=== PATIENT | male | born 1960 | race Two or more races ===

== ENCOUNTER 2021-01-13 17:17 | Emergency (ER) | payer MEDICARE, OTHER ==
--- NOTE | 2021-01-13 17:49 | EDM.PDOC ---
ED HPI GENERAL MEDICAL PROBLEM - General Chief Complaint: Chest Pain Stated Complaint: CHEST PAIN Time Seen by Provider: 01/13/21 17:48 Source of Information: Reports: Patient, RN, RN Notes Reviewed History Limitations: Reports: No Limitations - History of Present Illness INITIAL COMMENTS - FREE TEXT/NARRATIVE: Patient is a 60-year-old male who presents to ER with complaint of onset before noon of chest tightness and feeling of a "ball in his throat". Patient states he thought he had indigestion, took his Protonix, took Maalox, took Tums, as well as Pepto-Bismol. Patient states no relief of pain. Patient states he had Covid in July, and again 87 days later. He states he still has residual effects from Covid. Patient states he does have some anxiety as well. Denies any nausea or vomiting, denies shortness of breath, denies diarrhea, denies radiation of pain. Patient states in the past week he has some had some sharp right lower quadrant pain that wraps around to the back, states this is not present today. Onset: Today, Sudden Chest Pain Score (Numeric/FACES): 6 - Related Data Allergies Allergy/AdvReac Type Severity Reaction Status Date / Time methylprednisolone Allergy Other Verified 10/02/20 10:49 Home Meds: Home Meds Acetaminophen 650 mg PO Q6HR PRN 12/15/14 [History] Pantoprazole [ProTONIX] 40 mg PO DAILY 12/15/14 [History] Sildenafil [Viagra] 100 mg PO ASDIRECTED PRN 12/15/14 [History] oxyCODONE 10 mg PO Q6HR PRN 12/15/14 [History] Ibuprofen 600 mg PO ASDIRECTED PRN 04/12/16 [History] LORazepam [Lorazepam] 1 mg PO BID 10/02/20 [History] Multivitamin with Minerals [Multiple Vitamin] 1 each PO DAILY 10/02/20 [History] Lisinopril/Hydrochlorothiazide [Lisinopril-HCTZ 10-12.5 MG] 1 tab PO DAILY 01/13/21 [History] glipiZIDE [Glucotrol XL] 10 mg PO DAILY 01/13/21 [History] tiZANidine HCl [Tizanidine HCl] 2 mg PO ASDIRECTED 01/13/21 [History] Past Medical History HEENT History: Reports: Impaired Vision Other HEENT History: WEARS GLASSES Cardiovascular History: Reports: CAD, Hypertension Respiratory History: Reports: Sleep Apnea Gastrointestinal History: Reports: GERD, Hemorrhoids Genitourinary History: Reports: BPH Musculoskeletal History: Reports: Back Pain, Chronic, Neck Pain, Chronic, Other (See Below) Other Musculoskeletal History: DDD CERVICAL. DDD LUMBAR. 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 Neurological History: Reports: Headaches, Chronic Psychiatric History: Reports: Anxiety, Depression, Other (See Below) Other Psychiatric History: CLAUSTROPHOBIA Endocrine/Metabolic History: Reports: Diabetes, Type II Hematologic History: Reports: Anemia, Other (See Below) Other Hematologic History: ELEVATED LIVER ENZYMES Immunologic History: Reports: None Oncologic (Cancer) History: Reports: None Dermatologic History: Reports: None - Infectious Disease History Infectious Disease History: Reports: Chicken Pox, Other (See Below) Other Infectious Disease History: cOVID 19 10/2020 - Past Surgical History Head Surgeries/Procedures: Reports: None HEENT Surgical History: Reports: Tonsillectomy Cardiovascular Surgical History: Reports: None Respiratory Surgical History: Reports: None GI Surgical History: Reports: Colonoscopy, EGD Male Surgical History: Reports: Other (See Below) Other Male Surgeries/Procedures: enlarge prostate Endocrine Surgical History: Reports: None Neurological Surgical History: Reports: None Musculoskeletal Surgical History: Reports: Arthroscopic Knee Other Musculoskeletal Surgeries/Procedures:: BILATERAL MENISCUS REPAIR Oncologic Surgical History: Reports: None Social & Family History - Family History Family Medical History: No Pertinent Family History - Tobacco Use Tobacco Use Status *Q: Never Tobacco User - Caffeine Use Caffeine Use: Reports: Coffee Other Caffeine Use: 1 CUP COFFEE DAILY. 1 SODA DAILY Caffeine Use Comment: 1-2 cups daily - Recreational Drug Use Recreational Drug Use: No ED ROS GENERAL - Review of Systems Review Of Systems: Comprehensive ROS is negative, except as noted in HPI. ED EXAM, GENERAL - Physical Exam Exam: See Below Exam Limited By: No Limitations General Appearance: Alert, WD/WN, Mild Distress Eye Exam: Bilateral Eye: EOMI, Normal Inspection Ears: Normal External Exam, Hearing Grossly Normal Nose: Normal Inspection Throat/Mouth: Normal Inspection, Normal Voice, No Airway Compromise Head: Atraumatic, Normocephalic Neck: Normal Inspection, Supple, Non-Tender, Full Range of Motion Respiratory/Chest: No Respiratory Distress, Lungs Clear, Normal Breath Sounds, No Accessory Muscle Use, Chest Non-Tender, Decreased Breath Sounds Cardiovascular: Normal Peripheral Pulses, Regular Rate, Rhythm, No Edema, No Gallop, No JVD, No Murmur, No Rub Peripheral Pulses: 2+: Radial (L), Radial (R) GI/Abdominal: Normal Bowel Sounds, Soft, Non-Tender (Male) Exam: Deferred Rectal (Males) Exam: Deferred Back Exam: Normal Inspection, Full Range of Motion, NT Extremities: Normal Inspection, Normal Range of Motion, Non-Tender, Normal Capillary Refill, No Pedal Edema Neurological: Alert, Oriented, CN II-XII Intact, Normal Cognition, Normal Gait, Normal Reflexes, No Motor/Sensory Deficits Psychiatric: Normal Affect, Normal Mood, Anxious Skin Exam: Warm, Dry, Intact, Normal Color, No Rash Lymphatic: No Adenopathy Course - Vital Signs Last Recorded V/S: Last Vital Signs Temp 97.9 F 01/13/21 17:34 Pulse 72 01/13/21 17:34 Resp 14 01/13/21 17:34 BP 170/92 H 01/13/21 17:34 Pulse Ox - Orders/Labs/Meds Orders: Active Orders 24 hr Category Date Time Status EKG Documentation Completion [RC] STAT Care 01/13/21 18:05 Active Chest 1V Frontal [CR] Stat Exams 01/13/21 19:04 Ordered CORONAVIRUS COVID-19 RAPID [MOLEC] Stat Lab 01/13/21 18:57 Received CULTURE BLOOD [BC] Stat Lab 01/13/21 18:33 Results Nitroglycerin/D5W [Nitroglycerin 25 MG/D5W 250 ML] Med 01/13/21 19:15 Stop Req 25 mg in 250 ml IV TITRATE Blood Culture x2 Reflex Set [OM.PC] Stat Oth 01/13/21 18:06 Ordered Medication Orders Nitroglycerin/Dextrose (Nitroglycerin 25 Mg/D5w 250 Ml) 25 mg in 250 mls @ 6 mls/hr IV TITRATE ALMA; Protocol Labs: Laboratory Tests 01/13/21 01/13/21 01/13/21 Range/Units 17:34 17:34 17:34 WBC 8.6 (5.0-10.0) 10^3/uL RBC 5.14 (4.6-6.2) 10^6/uL Hgb 13.9 L D (14.0-18.0) g/dL Hct 42.0 (40.0-54.0) % MCV 81.7 D (80-100) fL MCH 27.0 (27.0-34.0) pg MCHC 33.1 (33.0-35.0) g/dL Plt Count 234 (150-450) 10^3/uL Neut % (Auto) 66.2 (42.2-75.2) % Lymph % (Auto) 20.2 L (20.5-50.1) % Butler % (Auto) 11.5 H (2-8) % Eos % (Auto) 1.9 (1.0-3.0) % Baso % (Auto) 0.2 (0.0-1.0) % PT 10.3 (9.0-12.0) SEC INR 1.0 (0.9-1.2) D-Dimer, Quantitative < 100 (0-400) ng/mL Sodium 138 (136-145) mmol/L Potassium 4.0 (3.5-5.1) mmol/L Chloride 101 (98-107) mmol/L Carbon Dioxide 31 (21-32) mmol/L Anion Gap 10.0 (7-13) mEq/L BUN 11 (7-18) mg/dL Creatinine 1.19 (0.70-1.30) mg/dL Est Cr Clr Drug Dosing TNP Estimated GFR (MDRD) > 60 BUN/Creatinine Ratio 9.2 (No establ ref range) Glucose 133 H (74-99) mg/dL Lactic Acid (0.4-2.0) mmol/L Calcium 8.5 (8.5-10.1) mg/dL Total Bilirubin 0.5 (0.2-1.0) mg/dL AST 34 (15-37) U/L ALT 58 (16-63) U/L Alkaline Phosphatase 88 (46-116) U/L Troponin I 0.181 H* (0.000-0.056) ng/mL C-Reactive Protein < 0.2 (0.0-0.9) mg/dL B-Natriuretic Peptide 8 (0-100) pg/ml Total Protein 7.2 (6.4-8.2) g/dL Albumin 3.5 (3.4-5.0) g/dL Globulin 3.7 Albumin/Globulin Ratio 0.9 TSH, Ultra Sensitive 2.53 (0.36-3.74) uIU/mL Urine Color (YELLOW) Urine Appearance (CLEAR) Urine pH (5.0-9.0) Ur Specific Ferguson (1.005-1.030) Urine Protein (NEGATIVE) Urine Glucose (UA) (NEGATIVE) Urine Ketones (NEGATIVE) Urine Occult Blood (NEGATIVE) Urine Nitrite (NEGATIVE) Urine Bilirubin (NEGATIVE) Urine Urobilinogen (0.2-1.0) mg/dL Ur Leukocyte Esterase (NEGATIVE) 01/13/21 01/13/21 Range/Units 18:33 18:37 WBC (5.0-10.0) 10^3/uL RBC (4.6-6.2) 10^6/uL Hgb (14.0-18.0) g/dL Hct (40.0-54.0) % MCV (80-100) fL MCH (27.0-34.0) pg MCHC (33.0-35.0) g/dL Plt Count (150-450) 10^3/uL Neut % (Auto) (42.2-75.2) % Lymph % (Auto) (20.5-50.1) % Butler % (Auto) (2-8) % Eos % (Auto) (1.0-3.0) % Baso % (Auto) (0.0-1.0) % PT (9.0-12.0) SEC INR (0.9-1.2) D-Dimer, Quantitative (0-400) ng/mL Sodium (136-145) mmol/L Potassium (3.5-5.1) mmol/L Chloride (98-107) mmol/L Carbon Dioxide (21-32) mmol/L Anion Gap (7-13) mEq/L BUN (7-18) mg/dL Creatinine (0.70-1.30) mg/dL Est Cr Clr Drug Dosing Estimated GFR (MDRD) BUN/Creatinine Ratio (No establ ref range) Glucose (74-99) mg/dL Lactic Acid 1.4 (0.4-2.0) mmol/L Calcium (8.5-10.1) mg/dL Total Bilirubin (0.2-1.0) mg/dL AST (15-37) U/L ALT (16-63) U/L Alkaline Phosphatase (46-116) U/L Troponin I (0.000-0.056) ng/mL C-Reactive Protein (0.0-0.9) mg/dL B-Natriuretic Peptide (0-100) pg/ml Total Protein (6.4-8.2) g/dL Albumin (3.4-5.0) g/dL Globulin Albumin/Globulin Ratio TSH, Ultra Sensitive (0.36-3.74) uIU/mL Urine Color Yellow (YELLOW) Urine Appearance Clear (CLEAR) Urine pH 7.0 (5.0-9.0) Ur Specific Ferguson 1.020 (1.005-1.030) Urine Protein Negative (NEGATIVE) Urine Glucose (UA) Negative (NEGATIVE) Urine Ketones Negative (NEGATIVE) Urine Occult Blood Negative (NEGATIVE) Urine Nitrite Negative (NEGATIVE) Urine Bilirubin Negative (NEGATIVE) Urine Urobilinogen 0.2 (0.2-1.0) mg/dL Ur Leukocyte Esterase Negative (NEGATIVE) Meds: Medications Generic Name Dose Route Start Last Admin Trade Name Freq PRN Reason Stop Dose Admin Nitroglycerin/Dextrose 25 mg in 250 mls @ 6 mls/hr 01/13/21 19:15 Nitroglycerin 25 Mg/D5w 250 Ml IV TITRATE ALMA Protocol 10 MCG/MIN Discontinued Medications Generic Name Dose Route Start Last Admin Trade Name Freq PRN Reason Stop Dose Admin Aspirin 324 mg 01/13/21 18:58 Aspirin 81 Mg Tab.Chew PO 01/13/21 18:59 ONETIME ONE Atorvastatin Calcium 10 mg 01/13/21 19:02 Atorvastatin 10 Mg Tab PO 01/13/21 19:03 ONETIME ONE Metoprolol Succinate 50 mg 01/13/21 18:58 Metoprolol Succinate 50 Mg Tab.Er PO 01/13/21 18:59 ONETIME ONE - Radiology Interpretation Free Text/Narrative:: Chest XRay: PROCEDURE INFORMATION: Exam: XR Chest Exam date and time: 01/13/2021 7:11 PM Age: 60 years old Clinical indication: Chest pain TECHNIQUE: Imaging protocol: XR of the chest Views: 1 view. COMPARISON: No relevant prior studies available. FINDINGS: Lungs: Unremarkable. No consolidation. Pleural spaces: Unremarkable. No pleural effusion. No pneumothorax. Heart/Mediastinum: Unremarkable. No cardiomegaly. Bones/joints: Unremarkable. IMPRESSION: No acute findings. Thank you for allowing us to participate in the care of your patient. Dictated and Authenticated by: Adam Randall MD 01/13/2021 7:17 PM Central Time ([place] & [place]) See rad report - Re-Assessments/Exams Free Text/Narrative Re-Assessment/Exam: 01/13/21 19:05 Patient states he is no longer taking Viagara, but is taking Cialis. He states he last took his Cialis 2 days ago. 01/13/21 19:08 Discussed patient case with Dr. Montero, Cardiology at [facility] who states to transfer the patient and give ASA, statin, and beta jose. Also states a Nitroglycerin gtt could be started but this was held due to the fact that the patient took Cialis 2 days ago, half life of Cialis is 17.5 hours. Suggestive to hold Nitro for 48 hours after Cialis taken. Departure - Departure Time of Disposition: 19:17 Disposition: Home, Self-Care 01 Reason for Transfer *Q: Other Condition: Fair Clinical Impression: NSTEMI (non-ST elevated myocardial infarction) Forms: ED Department Discharge, Interfacility Transfer [facility] Sepsis Event Note (ED) - Evaluation Sepsis Screening Result: No Definite Risk - Focused Exam Vital Signs: Vital Signs Temp Pulse Resp BP 01/13/21 17:34 97.9 F 72 14 170/92 H - My Orders Last 24 Hours: My Active Orders 01/13/21 18:05 EKG Documentation Completion [RC] STAT 01/13/21 18:06 Blood Culture x2 Reflex Set [OM.PC] Stat 01/13/21 18:33 CULTURE BLOOD [BC] Stat 01/13/21 19:04 Chest 1V Frontal [CR] Stat 01/13/21 19:15 Nitroglycerin/D5W [Nitroglycerin 25 MG/D5W 250 ML] 25 mg in 250 ml IV TITRATE - Assessment/Plan Last 24 Hours: My Active Orders 01/13/21 18:05 EKG Documentation Completion [RC] STAT 01/13/21 18:06 Blood Culture x2 Reflex Set [OM.PC] Stat 01/13/21 18:33 CULTURE BLOOD [BC] Stat 01/13/21 19:04 Chest 1V Frontal [CR] Stat 01/13/21 19:15 Nitroglycerin/D5W [Nitroglycerin 25 MG/D5W 250 ML] 25 mg in 250 ml IV TITRATE
[2021-01-13 18:40] LABS: CHLORIDE,CL 101 mmol/L (98-107); SODIUM,NA 138 mmol/L (136-145)
[2021-01-13] MEDS ORDERED: Aspirin 81 MG Tab.Chew PO ONE (18:58)
[2021-01-13] MEDS ORDERED: Metoprolol Succinate 50 MG Tab.ER PO ONE (18:58)
[2021-01-13] MEDS ORDERED: atorvaSTATin 10 MG Tab PO ONE (19:02)
[2021-01-13] MEDS ORDERED: Nitroglycerin/D5W 25 MG/250 ML BOTTLE IV SCH (19:15)
--- NOTE | 2021-01-13 19:17 | CR ---
PROCEDURE INFORMATION: Exam: XR Chest Exam date and time: 01/13/2021 7:11 PM Age: 60 years old Clinical indication: Chest pain TECHNIQUE: Imaging protocol: XR of the chest Views: 1 view. COMPARISON: No relevant prior studies available. FINDINGS: Lungs: Unremarkable. No consolidation. Pleural spaces: Unremarkable. No pleural effusion. No pneumothorax. Heart/Mediastinum: Unremarkable. No cardiomegaly. Bones/joints: Unremarkable. IMPRESSION: No acute findings.
[2021-01-13 19:24] VITALS: BP 167/87; PULSE 82
== END 2021-01-13 19:40 | disposition home or self-care (01) ==
LOC: DL.ED 17:17
DX: I21.4 Non-ST elevation (NSTEMI) myocardial infarction (principal); I25.10 Atherosclerotic heart disease of native coronary artery without angina pectoris; I10 Essential (primary) hypertension; K21.9 Gastro-esophageal reflux disease without esophagitis; E11.9 Type 2 diabetes mellitus without complications; Z88.8 Allergy status to other drugs, medicaments and biological substances; Z79.84 Long term (current) use of oral hypoglycemic drugs; Z79.899 Other long term (current) drug therapy; Z20.822 Contact with and (suspected) exposure to COVID-19
CPT/HCPCS: 36415; 71045; 80053; 81003; 83605; 83880; 84443; 84484; 85025; 85379; 85610; 86140; 87040; 93005; 99284; 99285; A9270; U0002

== ENCOUNTER 2021-01-18 10:48 | Emergency (ER) | payer MEDICARE, OTHER ==
[2021-01-18 10:52] VITALS: PULSE 72
[2021-01-18] MEDS ORDERED: Nitroglycerin 0.4 MG Tab.SL SL ONE (10:52)
[2021-01-18 10:57] VITALS: BP 148/85
--- NOTE | 2021-01-18 11:00 | CR ---
PROCEDURE INFORMATION: Exam: XR Chest Exam date and time: 01/18/2021 10:53 AM Age: 60 years old Clinical indication: Chest pain; Type not specified TECHNIQUE: Imaging protocol: XR of the chest Views: 1 view. COMPARISON: CR Chest 1V Frontal 01/13/2021 7:11 PM FINDINGS: Lungs: The lungs are normally expanded and clear. Pleural spaces: No pleural effusion or pneumothorax. Heart/Mediastinum: Normal heart and cardio-mediastinal silhouette. Vasculature: Normal pulmonary vessels and width of the vascular pedicle. Bones/joints: Intact and normally aligned. IMPRESSION: No acute disease or suspicious finding.
[2021-01-18] MEDS ORDERED: GI Cocktail Oral Solution 30 ML PO ONE (11:03)
--- NOTE | 2021-01-18 11:03 | EDM.PDOC ---
ED HPI GENERAL MEDICAL PROBLEM - General Chief Complaint: Chest Pain Stated Complaint: chest pain Time Seen by Provider: 01/18/21 10:50 Source of Information: Reports: Patient, Old Records, Provider (Dr. Riley), RN, RN Notes Reviewed History Limitations: Reports: No Limitations - History of Present Illness INITIAL COMMENTS - FREE TEXT/NARRATIVE: Patient presents to the ED from [facility] in [place] for complaints of chest pain. The patient was seen by his primary care provider Dr. Riley regarding questions about Plavix, as this medication is new for him following his recent MO five days ago on 01/13/2021. Patient was transferred out of this ER five days ago and received three stents at [facility] in [place]. The patient states this chest pain began abruptly about 20 minutes ago. He he rates the pain as a five and characterizes it as a hollow feeling in his chest. He notes the pain is localized to the midsternal and left chest; it does not radiate into his jaw or down his arm. He states he has not been taking his Plavix since discharge from the hospital due to concerns about bleeding, but he did take a dose today. He denies fever, shaking chills, vision changes, dizziness, palpitations, shortness of breath, vomiting, or loose stools. He does attest to diaphoresis, nausea, and fatigue. He states this is how he felt a week ago prior to his diagnosis of non-STEMI. He denies a history of tobacco, alcohol, or recreational drug use. Chest Pain Score (Numeric/FACES): 5 - Related Data Allergies Allergy/AdvReac Type Severity Reaction Status Date / Time methylprednisolone Allergy Other Verified 10/02/20 10:49 Home Meds: Home Meds Acetaminophen 650 mg PO Q6HR PRN 12/15/14 [History] Pantoprazole [ProTONIX] 40 mg PO DAILY 12/15/14 [History] Sildenafil [Viagra] 100 mg PO ASDIRECTED PRN 12/15/14 [History] oxyCODONE 10 mg PO Q6HR PRN 12/15/14 [History] Ibuprofen 600 mg PO ASDIRECTED PRN 04/12/16 [History] LORazepam [Lorazepam] 1 mg PO BID 10/02/20 [History] Multivitamin with Minerals [Multiple Vitamin] 1 each PO DAILY 10/02/20 [History] Lisinopril/Hydrochlorothiazide [Lisinopril-HCTZ 10-12.5 MG] 1 tab PO DAILY 01/13/21 [History] glipiZIDE [Glucotrol XL] 10 mg PO DAILY 01/13/21 [History] tiZANidine HCl [Tizanidine HCl] 2 mg PO ASDIRECTED 01/13/21 [History] Past Medical History HEENT History: Reports: Impaired Vision Other HEENT History: WEARS GLASSES Cardiovascular History: Reports: CAD, Hypertension Respiratory History: Reports: Sleep Apnea Gastrointestinal History: Reports: GERD, Hemorrhoids Genitourinary History: Reports: BPH Musculoskeletal History: Reports: Back Pain, Chronic, Neck Pain, Chronic, Other (See Below) Other Musculoskeletal History: DDD CERVICAL. DDD LUMBAR. 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 Neurological History: Reports: Headaches, Chronic Psychiatric History: Reports: Anxiety, Depression, Other (See Below) Other Psychiatric History: CLAUSTROPHOBIA Endocrine/Metabolic History: Reports: Diabetes, Type II Hematologic History: Reports: Anemia, Other (See Below) Other Hematologic History: ELEVATED LIVER ENZYMES Immunologic History: Reports: None Oncologic (Cancer) History: Reports: None Dermatologic History: Reports: None - Infectious Disease History Infectious Disease History: Reports: Chicken Pox, Other (See Below) Other Infectious Disease History: cOVID 19 10/2020 - Past Surgical History Head Surgeries/Procedures: Reports: None HEENT Surgical History: Reports: Tonsillectomy Cardiovascular Surgical History: Reports: None Respiratory Surgical History: Reports: None GI Surgical History: Reports: Colonoscopy, EGD Male Surgical History: Reports: Other (See Below) Other Male Surgeries/Procedures: enlarge prostate Endocrine Surgical History: Reports: None Neurological Surgical History: Reports: None Musculoskeletal Surgical History: Reports: Arthroscopic Knee Other Musculoskeletal Surgeries/Procedures:: BILATERAL MENISCUS REPAIR Oncologic Surgical History: Reports: None Social & Family History - Family History Family Medical History: No Pertinent Family History - Caffeine Use Caffeine Use: Reports: Coffee Other Caffeine Use: 1 CUP COFFEE DAILY. 1 SODA DAILY Caffeine Use Comment: 1-2 cups daily ED ROS GENERAL - Review of Systems Review Of Systems: Comprehensive ROS is negative, except as noted in HPI. ED EXAM, GENERAL - Physical Exam Exam: See Below Exam Limited By: No Limitations General Appearance: Alert, Mild Distress (Diaphoretic), Obese Eye Exam: Bilateral Eye: EOMI, Normal Inspection, PERRL Nose: Normal Inspection, Normal Mucosa, No Blood Throat/Mouth: Normal Inspection, Normal Lips, Normal Teeth, Normal Gums, Normal Oropharynx, Normal Voice, No Airway Compromise Head: Atraumatic, Normocephalic Neck: Normal Inspection, Supple, Non-Tender, Full Range of Motion. No: Lymphadenopathy (L), Lymphadenopathy (R) Respiratory/Chest: Wheezing (Expiratory to right upper and lower lobes). No: No Accessory Muscle Use, Chest Non-Tender, Crackles, Rales, Rhonchi, Stridor Cardiovascular: Regular Rate, Rhythm, No Gallop, No JVD, No Murmur, No Rub Peripheral Pulses: 2+: Radial (L), Radial (R) GI/Abdominal: Non-Tender, No Mass, Pelvis Stable, Distended (Male) Exam: Deferred Rectal (Males) Exam: Deferred Back Exam: Normal Inspection, Full Range of Motion Extremities: Normal Inspection, Normal Range of Motion, Non-Tender, Normal Capil brenda Refill, No Pedal Edema Neurological: Alert, Oriented, CN II-XII Intact, Normal Cognition, Normal Gait, No Motor/Sensory Deficits Psychiatric: Normal Mood, Flat Affect Skin Exam: Warm, Intact, Normal Color, Diaphoretic, Erythema (Flushed to face and chest). No: Ecchymosis, Jaundice, Mottled, Pallor, Petechiae #1 Interpretation EKG Date: 01/18/21 Time: 10:45 Rhythm: NSR Rate (Beats/Min): 71 [place]: LAD-Left [place] Deviation P-Wave: Present QRS: Normal ST-T: Elevated (Mild elevation in V4) QT: Normal MA/PQ Interval: 0.158 #2 Interpretation EKG Date: 01/18/21 Time: 14:51 Rhythm: NSR Rate (Beats/Min): 66 [place]: Normal P-Wave: Present QRS: Normal ST-T: Normal QT: Normal Comparison: No Change EKG Interpretation Comments: NSR; No evidence of acute myocardial ischemia Course - Vital Signs Last Recorded V/S: Last Vital Signs Temp 97.5 F 01/18/21 13:00 Pulse 72 01/18/21 10:50 Resp 20 01/18/21 10:50 BP 148/85 H 01/18/21 10:56 Pulse Ox 98 01/18/21 10:50 - Orders/Labs/Meds Orders: Active Orders 24 hr Category Date Time Status EKG Documentation Completion [RC] ROUTINE Care 01/18/21 14:44 Active EKG Documentation Completion [RC] STAT Care 01/18/21 10:50 Active Heparin Sodium/0.45% NaCl [Heparin 25,000 Units in 1/2 Med 01/18/21 11:45 Active NS 500 ML] 25,000 units in 500 ml IV TITRATE Medication Orders Heparin Sodium/Sodium Chloride (Heparin 25,000 Units In 1/2 Ns 500 Ml) 25,000 units in 500 mls @ 37.789 mls/hr IV TITRATE ALMA; Protocol Last Admin: 01/18/21 12:01 Dose: 12 units/kg/hr, 37.789 mls/hr Documented by: CLEMENTE Cosigned by: NOHELIA Labs: Laboratory Tests 01/18/21 01/18/21 01/18/21 Range/Units 10:47 10:47 10:47 WBC 10.2 H (5.0-10.0) 10^3/uL RBC 5.80 (4.6-6.2) 10^6/uL Hgb 15.7 D (14.0-18.0) g/dL Hct 46.6 (40.0-54.0) % MCV 80.3 (80-100) fL MCH 27.1 (27.0-34.0) pg MCHC 33.7 (33.0-35.0) g/dL Plt Count 291 (150-450) 10^3/uL Neut % (Auto) 66.9 (42.2-75.2) % Lymph % (Auto) 18.0 L (20.5-50.1) % [place] % (Auto) 11.5 H (2-8) % Eos % (Auto) 3.0 (1.0-3.0) % Baso % (Auto) 0.6 (0.0-1.0) % PT 11.1 (9.0-12.0) SEC INR 1.1 (0.9-1.2) APTT 25.9 (22.0-34.0) SEC Sodium 136 (136-145) mmol/L Potassium 4.2 (3.5-5.1) mmol/L Chloride 98 (98-107) mmol/L Carbon Dioxide 29 (21-32) mmol/L Anion Gap 13.2 H (7-13) mEq/L BUN 14 (7-18) mg/dL Creatinine 1.24 (0.70-1.30) mg/dL Est Cr Clr Drug Dosing 71.81 mL/min Estimated GFR (MDRD) 59 BUN/Creatinine Ratio 11.3 (No establ ref range) Glucose 174 H (74-99) mg/dL Lactic Acid (0.4-2.0) mmol/L Calcium 9.2 (8.5-10.1) mg/dL Total Bilirubin 0.8 (0.2-1.0) mg/dL AST 34 (15-37) U/L ALT 56 (16-63) U/L Alkaline Phosphatase 108 (46-116) U/L Troponin I 0.183 H* (0.000-0.056) ng/mL C-Reactive Protein 0.4 (0.0-0.9) mg/dL B-Natriuretic Peptide 9 (0-100) pg/ml Total Protein 8.0 (6.4-8.2) g/dL Albumin 3.8 (3.4-5.0) g/dL Globulin 4.2 Albumin/Globulin Ratio 0.9 Urine Color (YELLOW) Urine Appearance (CLEAR) Urine pH (5.0-9.0) Ur Specific [place] (1.005-1.030) Urine Protein (NEGATIVE) Urine Glucose (UA) (NEGATIVE) Urine Ketones (NEGATIVE) Urine Occult Blood (NEGATIVE) Urine Nitrite (NEGATIVE) Urine Bilirubin (NEGATIVE) Urine Urobilinogen (0.2-1.0) mg/dL Ur Leukocyte Esterase (NEGATIVE) Urine Opiates Screen (NEGATIVE) Ur Oxycodone Screen (NEGATIVE) Urine Methadone Screen (NEGATIVE) Ur Barbiturates Screen (NEGATIVE) U Tricyclic Antidepress (NEGATIVE) Ur Phencyclidine Scrn (NEGATIVE) Ur Amphetamine Screen (NEGATIVE) U Methamphetamines Scrn (NEGATIVE) Urine MDMA Screen (NEGATIVE) U Benzodiazepines Scrn (NEGATIVE) Urine Cocaine Screen (NEGATIVE) U Marijuana (THC) Screen (NEGATIVE) Ethyl Alcohol < 3 (0) mg/dL 01/18/21 01/18/21 01/18/21 Range/Units 10:47 13:42 13:42 WBC (5.0-10.0) 10^3/uL RBC (4.6-6.2) 10^6/uL Hgb (14.0-18.0) g/dL Hct (40.0-54.0) % MCV (80-100) fL MCH (27.0-34.0) pg MCHC (33.0-35.0) g/dL Plt Count (150-450) 10^3/uL Neut % (Auto) (42.2-75.2) % Lymph % (Auto) (20.5-50.1) % [place] % (Auto) (2-8) % Eos % (Auto) (1.0-3.0) % Baso % (Auto) (0.0-1.0) % PT (9.0-12.0) SEC INR (0.9-1.2) APTT (22.0-34.0) SEC Sodium (136-145) mmol/L Potassium (3.5-5.1) mmol/L Chloride (98-107) mmol/L Carbon Dioxide (21-32) mmol/L Anion Gap (7-13) mEq/L BUN (7-18) mg/dL Creatinine (0.70-1.30) mg/dL Est Cr Clr Drug Dosing mL/min Estimated GFR (MDRD) BUN/Creatinine Ratio (No establ ref range) Glucose (74-99) mg/dL Lactic Acid 1.2 (0.4-2.0) mmol/L Calcium (8.5-10.1) mg/dL Total Bilirubin (0.2-1.0) mg/dL AST (15-37) U/L ALT (16-63) U/L Alkaline Phosphatase (46-116) U/L Troponin I (0.000-0.056) ng/mL C-Reactive Protein (0.0-0.9) mg/dL B-Natriuretic Peptide (0-100) pg/ml Total Protein (6.4-8.2) g/dL Albumin (3.4-5.0) g/dL Globulin Albumin/Globulin Ratio Urine Color Yellow (YELLOW) Urine Appearance Clear (CLEAR) Urine pH 6.5 (5.0-9.0) Ur Specific [place] 1.020 (1.005-1.030) Urine Protein Negative (NEGATIVE) Urine Glucose (UA) Negative (NEGATIVE) Urine Ketones Negative (NEGATIVE) Urine Occult Blood Negative (NEGATIVE) Urine Nitrite Negative (NEGATIVE) Urine Bilirubin Negative (NEGATIVE) Urine Urobilinogen 0.2 (0.2-1.0) mg/dL Ur Leukocyte Esterase Negative (NEGATIVE) Urine Opiates Screen Negative (NEGATIVE) Ur Oxycodone Screen Positive H (NEGATIVE) Urine Methadone Screen Negative (NEGATIVE) Ur Barbiturates Screen Negative (NEGATIVE) U Tricyclic Antidepress Negative (NEGATIVE) Ur Phencyclidine Scrn Negative (NEGATIVE) Ur Amphetamine Screen Negative (NEGATIVE) U Methamphetamines Scrn Negative (NEGATIVE) Urine MDMA Screen Negative (NEGATIVE) U Benzodiazepines Scrn Positive H (NEGATIVE) Urine Cocaine Screen Negative (NEGATIVE) U Marijuana (THC) Screen Positive H (NEGATIVE) Ethyl Alcohol (0) mg/dL 01/18/21 Range/Units 14:53 WBC (5.0-10.0) 10^3/uL RBC (4.6-6.2) 10^6/uL Hgb (14.0-18.0) g/dL Hct (40.0-54.0) % MCV (80-100) fL MCH (27.0-34.0) pg MCHC (33.0-35.0) g/dL Plt Count (150-450) 10^3/uL Neut % (Auto) (42.2-75.2) % Lymph % (Auto) (20.5-50.1) % [place] % (Auto) (2-8) % Eos % (Auto) (1.0-3.0) % Baso % (Auto) (0.0-1.0) % PT (9.0-12.0) SEC INR (0.9-1.2) APTT (22.0-34.0) SEC Sodium (136-145) mmol/L Potassium (3.5-5.1) mmol/L Chloride (98-107) mmol/L Carbon Dioxide (21-32) mmol/L Anion Gap (7-13) mEq/L BUN (7-18) mg/dL Creatinine (0.70-1.30) mg/dL Est Cr Clr Drug Dosing mL/min Estimated GFR (MDRD) BUN/Creatinine Ratio (No establ ref range) Glucose (74-99) mg/dL Lactic Acid (0.4-2.0) mmol/L Calcium (8.5-10.1) mg/dL Total Bilirubin (0.2-1.0) mg/dL AST (15-37) U/L ALT (16-63) U/L Alkaline Phosphatase (46-116) U/L Troponin I 0.152 H* (0.000-0.056) ng/mL C-Reactive Protein (0.0-0.9) mg/dL B-Natriuretic Peptide (0-100) pg/ml Total Protein (6.4-8.2) g/dL Albumin (3.4-5.0) g/dL Globulin Albumin/Globulin Ratio Urine Color (YELLOW) Urine Appearance (CLEAR) Urine pH (5.0-9.0) Ur Specific [place] (1.005-1.030) Urine Protein (NEGATIVE) Urine Glucose (UA) (NEGATIVE) Urine Ketones (NEGATIVE) Urine Occult Blood (NEGATIVE) Urine Nitrite (NEGATIVE) Urine Bilirubin (NEGATIVE) Urine Urobilinogen (0.2-1.0) mg/dL Ur Leukocyte Esterase (NEGATIVE) Urine Opiates Screen (NEGATIVE) Ur Oxycodone Screen (NEGATIVE) Urine Methadone Screen (NEGATIVE) Ur Barbiturates Screen (NEGATIVE) U Tricyclic Antidepress (NEGATIVE) Ur Phencyclidine Scrn (NEGATIVE) Ur Amphetamine Screen (NEGATIVE) U Methamphetamines Scrn (NEGATIVE) Urine MDMA Screen (NEGATIVE) U Benzodiazepines Scrn (NEGATIVE) Urine Cocaine Screen (NEGATIVE) U Marijuana (THC) Screen (NEGATIVE) Ethyl Alcohol (0) mg/dL Meds: Medications Generic Name Dose Route Start Last Admin Trade Name Freq PRN Reason Stop Dose Admin Heparin Sodium/Sodium Chloride 25,000 units in 500 mls @ 37.789 mls/hr 01/18/21 11:45 01/18/21 12:01 Heparin 25,000 Units In 1/2 Ns 500 Ml IV 12 units/kg/hr TITRATE ALMA 37.789 mls/hr Administration Protocol 12 UNITS/KG/HR Discontinued Medications Generic Name Dose Route Start Last Admin Trade Name Freq PRN Reason Stop Dose Admin Acetaminophen 1,000 mg 01/18/21 12:50 01/18/21 13:00 Acetaminophen 500 Mg Tab PO 01/18/21 12:51 1,000 mg ONETIME ONE Administration Al Hydroxide/Mg Hydroxide 30 ml 01/18/21 11:03 01/18/21 11:07 Gi Cocktail Oral Solution 30 Ml PO 01/18/21 11:04 30 ml ONETIME ONE Administration Nitroglycerin 0.4 mg 01/18/21 10:52 01/18/21 10:56 Nitroglycerin 0.4 Mg Tab.Sl SL 01/18/21 10:53 0.4 mg ONETIME ONE Administration - Radiology Interpretation Free Text/Narrative:: [facility] Final Radiology Report Call: [phone] assistance Online chat: [email or web address] Name: SILVIA CISSE Age: 60Years M Date: 01/18/2021 SSN: -- : 1960 Study: CR CHEST 1V FRONTAL Requesting Physician: Bernadette Elam Images: 1 Addl Studies: Provided Clinical History: Chest pain Contrast: Contrast Medium: Contrast Amount: Contrast Method: CONFIDENTIALITY STATEMENT This report is intended only for use by the referring physician, and only in accordance with law. If you received this in error, call [phone]. Page 1 of 1 PROCEDURE INFORMATION: Exam: XR Chest Exam date and time: 01/18/2021 10:53 AM Age: 60 years old Clinical indication: Chest pain; Type not specified TECHNIQUE: Imaging protocol: XR of the chest Views: 1 view. COMPARISON: CR Chest 1V Frontal 01/13/2021 7:11 PM FINDINGS: Lungs: The lungs are normally expanded and clear. Pleural spaces: No pleural effusion or pneumothorax. Heart/Mediastinum: Normal heart and cardio-mediastinal silhouette. Vasculature: Normal pulmonary vessels and width of the vascular pedicle. Bones/joints: Intact and normally aligned. IMPRESSION: No acute disease or suspicious finding. Thank you for allowing us to participate in the care of your patient. Dictated and Authenticated by: Ap Rubio MD 01/18/2021 10:59 AM Central Time ([place] & [place]) - Re-Assessments/Exams Free Text/Narrative Re-Assessment/Exam: 01/18/21 EKG reveals NSR with LAD. Nitro 0.4 SL administered. Patient verbalized mild improvement in symptoms. GI cocktail administered. Patient verbalized resolution of chest pain following GI cocktail. Troponin elevated at 0.183 [facility] called to review case and inquire about post-stenting Troponin. Kelsi from [facility] reviewed case notes from [facility] with promotion writer; no post-stenting Troponin or trending Troponin drawn. Will start Heparin gtt drip at 12u/kg/hr and trend Troponin here. If Troponin increases will follow up with [facility], if not will discharge patient home. Findings of examination, lab work, and imaging discussed with patient. Patient verbalized understanding and agreement with the plan of care. EKG remains NSR with LAD and no ST elevation/depression. Troponin recheck 0.153 Patient updated on these findings. Will discharge home with instructions to follow up with primary care regarding today's visit. Patient verbalized understanding and agreement with the plan of care. Departure - Departure Time of Disposition: 15:30 Disposition: Home, Self-Care 01 Condition: Good Clinical Impression: GERD (gastroesophageal reflux disease) Qualifiers: Esophagitis presence: without esophagitis Qualified Code(s): K21.9 - Gastro- esophageal reflux disease without esophagitis Instructions: Food Choices for Gastroesophageal Reflux Disease, Adult, [id number] Forms: ED Department Discharge Additional Instructions: 1.) Keep your previously scheduled appointment with Cardiology. 2.) You may take TUMs or Zantac in addition to your daily Omeprazole. 3.) Follow up with your primary care provider regarding today's visit should symptoms of GERD return. If you experience significant chest pain, shortness of breath, changes in vision, or weakness follow up in the emergency department. 4.) Take your Plavix and Aspirin, as directed. Sepsis Event Note (ED) - Evaluation Sepsis Screening Result: No Definite Risk - Focused Exam Vital Signs: Vital Signs Temp Temp Pulse Resp BP BP Pulse Ox 01/18/21 13:00 97.5 F 01/18/21 10:56 148/85 H 01/18/21 10:50 96.2 F L 72 20 151/84 H 98 - My Orders Last 24 Hours: My Active Orders 01/18/21 10:50 EKG Documentation Completion [RC] STAT 01/18/21 11:45 Heparin Sodium/0.45% NaCl [Heparin 25,000 Units in 1/2 NS 500 ML] 25,000 units in 500 ml IV TITRATE 01/18/21 14:44 EKG Documentation Completion [RC] ROUTINE - Assessment/Plan Last 24 Hours: My Active Orders 01/18/21 10:50 EKG Documentation Completion [RC] STAT 01/18/21 11:45 Heparin Sodium/0.45% NaCl [Heparin 25,000 Units in 1/2 NS 500 ML] 25,000 units in 500 ml IV TITRATE 01/18/21 14:44 EKG Documentation Completion [RC] ROUTINE
[2021-01-18 11:10] LABS: PTT,PARTIAL THROMBOPLSTIN TIME 25.9 SEC (22.0-34.0)
[2021-01-18 11:15] LABS: ANION GAP 13.2 mEq/L (7-13); CHLORIDE,CL 98 mmol/L (98-107); SODIUM,NA 136 mmol/L (136-145)
[2021-01-18] MEDS ORDERED: Heparin Sodium/0.45% NaCl 25,000 UNITS/500 ML BAG IV SCH (11:45)
[2021-01-18] MEDS ORDERED: Acetaminophen 500 MG Tab PO ONE (12:50)
== END 2021-01-18 16:00 | disposition home or self-care (01) ==
LOC: DL.ED 10:48
DX: K21.9 Gastro-esophageal reflux disease without esophagitis (principal); I10 Essential (primary) hypertension; I25.10 Atherosclerotic heart disease of native coronary artery without angina pectoris; E11.9 Type 2 diabetes mellitus without complications; Z88.8 Allergy status to other drugs, medicaments and biological substances; Z79.84 Long term (current) use of oral hypoglycemic drugs; Z79.899 Other long term (current) drug therapy
CPT/HCPCS: 36415; 71045; 80053; 80305; 80307; 81003; 83605; 83880; 84484; 85025; 85610; 85730; 86140; 93005; 93010; 96365; 96366; 99284; 99285; A9270; J1644

== ENCOUNTER 2021-01-21 16:27 | Emergency (ER) | payer MEDICARE, OTHER ==
[2021-01-21 16:51] VITALS: BP 138/78; PULSE 78
[2021-01-21 17:08] LABS: ANION GAP 10.7 mEq/L (7-13); CHLORIDE,CL 100 mmol/L (98-107); SODIUM,NA 138 mmol/L (136-145)
[2021-01-21] MEDS ORDERED: Heparin Sodium 5,000 Units/ML Vial IVPUSH ONE (17:22)
[2021-01-21] MEDS ORDERED: Heparin Sodium/0.45% NaCl 25,000 UNITS/500 ML BAG IV ONE (17:23)
--- NOTE | 2021-01-21 17:29 | CR ---
PROCEDURE INFORMATION: Exam: XR Chest Exam date and time: 01/21/2021 5:18 PM Age: 60 years old Clinical indication: Other: Chest pain; Additional info: Chest pain with shortness of breath TECHNIQUE: Imaging protocol: XR of the chest Views: 1 view. COMPARISON: CR Chest 1V Frontal 01/18/2021 10:53 AM FINDINGS: Limitations: Image detail limited by body habitus issues. Lungs: The lungs are clear. Pleural spaces: No pleural effusion. No pneumothorax. Heart/Mediastinum: Prominent heart size is likely accentuated by portable technique. Bones/joints: No acute bony findings are identified. IMPRESSION: No acute findings.
--- NOTE | 2021-01-21 17:50 | EDM.PDOC ---
ED HPI GENERAL MEDICAL PROBLEM - General Chief Complaint: Chest Pain Stated Complaint: CARDIAC ISSUES Time Seen by Provider: 01/21/21 17:00 Source of Information: Reports: Patient History Limitations: Reports: No Limitations - History of Present Illness INITIAL COMMENTS - FREE TEXT/NARRATIVE: This 60 yo male patient was brought to the ED from the [facility] due to continued chest pressure and increased shortness of breath with exertion. The patient was seen in this facility on 01/13/21 with a NSTEMI and sent to [facility] in [place]. The patient reports he had 3 stents and was discharged in 2 days. The patient reports he was feeling well at discharge, but started to have increased chest pressure causing him to come back to our facility on 01/18/21. During that visit, the patient continued to have an elevated troponin level, was started on a Heparin drip and had a lowered troponin level at the second reading. The patient reports he had continued to have chest pressure and increased shortness of breath with walking only 20 feet. The patient was seen today by Dr. Riley in the clinic and brought directly to the ED for further evaluation and transfer to [facility] in [place]. Onset: Unknown/Unsure Duration: Constant, Getting Worse Location: Reports: Chest Quality: Reports: Pressure Severity: Moderate Improves with: Reports: Rest Worsens with: Reports: Movement Context: Reports: Other Associated Symptoms: Reports: Chest Pain, Shortness of Breath - Related Data Allergies Allergy/AdvReac Type Severity Reaction Status Date / Time methylprednisolone Allergy Other Verified 10/02/20 10:49 Home Meds: Home Meds Pantoprazole [ProTONIX] 40 mg PO DAILY 12/15/14 [History] oxyCODONE 10 mg PO Q6HR PRN 12/15/14 [History] LORazepam [Lorazepam] 1 mg PO BID PRN 10/02/20 [History] Lisinopril/Hydrochlorothiazide [Lisinopril-HCTZ 10-12.5 MG] 1 tab PO DAILY 01/13/21 [History] glipiZIDE [Glucotrol XL] 10 mg PO BIDMEALS 01/13/21 [History] tiZANidine HCl [Tizanidine HCl] 2 mg PO TID PRN 01/13/21 [History] Aspirin [Aspirin EC] 81 mg PO DAILY 01/21/21 [History] Benzonatate [Tessalon Perle] 100 mg PO TID PRN 01/21/21 [History] Clopidogrel Bisulfate [Plavix] 75 mg PO DAILY 01/21/21 [History] Tadalafil [Cialis] 10 mg PO ASDIRECTED PRN 01/21/21 [History] atorvaSTATin Calcium [Lipitor] 40 mg PO DAILY 01/21/21 [History] Past Medical History HEENT History: Reports: Impaired Vision Other HEENT History: WEARS GLASSES Cardiovascular History: Reports: CAD, Hypertension, Stents Respiratory History: Reports: Sleep Apnea Gastrointestinal History: Reports: GERD, Hemorrhoids Genitourinary History: Reports: BPH Musculoskeletal History: Reports: Back Pain, Chronic, Neck Pain, Chronic, Other (See Below) Other Musculoskeletal History: DDD CERVICAL. DDD LUMBAR. 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 Neurological History: Reports: Headaches, Chronic Psychiatric History: Reports: Anxiety, Depression, Other (See Below) Other Psychiatric History: CLAUSTROPHOBIA Endocrine/Metabolic History: Reports: Diabetes, Type II Hematologic History: Reports: Anemia, Other (See Below) Other Hematologic History: ELEVATED LIVER ENZYMES Immunologic History: Reports: None Oncologic (Cancer) History: Reports: None Dermatologic History: Reports: None - Infectious Disease History Infectious Disease History: Reports: Chicken Pox, Other (See Below) Other Infectious Disease History: cOVID 19 10/2020 - Past Surgical History Head Surgeries/Procedures: Reports: None HEENT Surgical History: Reports: Tonsillectomy Cardiovascular Surgical History: Reports: None Respiratory Surgical History: Reports: None GI Surgical History: Reports: Colonoscopy, EGD Male Surgical History: Reports: Other (See Below) Other Male Surgeries/Procedures: enlarge prostate Endocrine Surgical History: Reports: None Neurological Surgical History: Reports: None Musculoskeletal Surgical History: Reports: Arthroscopic Knee Other Musculoskeletal Surgeries/Procedures:: BILATERAL MENISCUS REPAIR Oncologic Surgical History: Reports: None Social & Family History - Family History Family Medical History: No Pertinent Family History - Tobacco Use Tobacco Use Status *Q: Never Tobacco User - Caffeine Use Caffeine Use: Reports: Coffee Other Caffeine Use: 1 CUP COFFEE DAILY. 1 SODA DAILY Caffeine Use Comment: 1-2 cups daily - Recreational Drug Use Recreational Drug Use: No ED ROS GENERAL - Review of Systems Review Of Systems: Comprehensive ROS is negative, except as noted in HPI. ED EXAM, GENERAL - Physical Exam Exam: See Below Exam Limited By: No Limitations General Appearance: Alert, WD/WN, Mild Distress Eye Exam: Bilateral Eye: EOMI, Normal Inspection, PERRL Ears: Normal External Exam, Normal Canal, Hearing Grossly Normal, Normal TMs Nose: Normal Inspection, Normal Mucosa, No Blood Throat/Mouth: Normal Inspection, Normal Lips, Normal Teeth, Normal Gums, Normal Oropharynx, Normal Voice, No Airway Compromise Head: Atraumatic, Normocephalic Neck: Normal Inspection, Supple, Non-Tender, Full Range of Motion Respiratory/Chest: No Respiratory Distress, Lungs Clear, Normal Breath Sounds, No Accessory Muscle Use, Chest Non-Tender Cardiovascular: Normal Peripheral Pulses, Regular Rate, Rhythm, No Edema, No Gallop, No JVD, No Murmur, No Rub GI/Abdominal: Normal Bowel Sounds, Soft, Non-Tender, No Organomegaly, No Distention, No Abnormal Bruit, No Mass (Male) Exam: Deferred Rectal (Males) Exam: Deferred Back Exam: Normal Inspection, Full Range of Motion, NT Extremities: Normal Inspection, Normal Range of Motion, Non-Tender, Normal Capillary Refill, No Pedal Edema Neurological: Alert, Oriented, CN II-XII Intact, Normal Cognition, Normal Gait, Normal Reflexes, No Motor/Sensory Deficits Psychiatric: Normal Affect, Normal Mood Skin Exam: Warm, Dry, Intact, Normal Color, No Rash Lymphatic: No Adenopathy #1 Interpretation EKG Date: 01/21/21 Time: 16:50 Rhythm: NSR [place]: Normal P-Wave: Present QRS: Normal ST-T: Normal QT: Normal Comparison: No Change Course - Vital Signs Last Recorded V/S: Last Vital Signs Temp 36.6 C 01/21/21 16:45 Pulse 78 01/21/21 16:45 Resp 14 01/21/21 16:45 BP 138/78 01/21/21 16:45 Pulse Ox 98 01/21/21 16:45 - Orders/Labs/Meds Labs: Laboratory Tests 01/21/21 01/21/21 01/21/21 Range/Units 16:40 16:40 16:40 WBC 10.4 H (5.0-10.0) 10^3/uL RBC 5.68 (4.6-6.2) 10^6/uL Hgb 15.5 (14.0-18.0) g/dL Hct 46.3 (40.0-54.0) % MCV 81.5 (80-100) fL MCH 27.3 (27.0-34.0) pg MCHC 33.5 (33.0-35.0) g/dL Plt Count 255 (150-450) 10^3/uL Neut % (Auto) 74.9 (42.2-75.2) % Lymph % (Auto) 10.8 L (20.5-50.1) % [place] % (Auto) 11.9 H (2-8) % Eos % (Auto) 1.3 (1.0-3.0) % Baso % (Auto) 1.1 H (0.0-1.0) % Add Manual Diff Yes Neutrophils % (Manual) 68 (42-75) % Band Neutrophils % 1 % Lymphocytes % (Manual) 18 L (20-50) % Monocytes % (Manual) 12 H (2-8) % Basophils % (Manual) 1 PT 10.5 (9.0-12.0) SEC INR 1.0 (0.9-1.2) D-Dimer, Quantitative 560 H (0-400) ng/mL Sodium 138 (136-145) mmol/L Potassium 4.7 (3.5-5.1) mmol/L Chloride 100 (98-107) mmol/L Carbon Dioxide 32 (21-32) mmol/L Anion Gap 10.7 (7-13) mEq/L BUN 10 (7-18) mg/dL Creatinine 1.10 (0.70-1.30) mg/dL Est Cr Clr Drug Dosing 80.95 mL/min Estimated GFR (MDRD) > 60 BUN/Creatinine Ratio 9.1 (No establ ref range) Glucose 129 H (74-99) mg/dL Calcium 9.1 (8.5-10.1) mg/dL Total Bilirubin 0.7 (0.2-1.0) mg/dL AST 51 H (15-37) U/L ALT 55 (16-63) U/L Alkaline Phosphatase 100 (46-116) U/L Troponin I 2.306 H* (0.000-0.056) ng/mL Total Protein 7.8 (6.4-8.2) g/dL Albumin 3.6 (3.4-5.0) g/dL Globulin 4.2 Albumin/Globulin Ratio 0.9 Meds: Medications Discontinued Medications Generic Name Dose Route Start Last Admin Trade Name Freq PRN Reason Stop Dose Admin Heparin Sodium (Porcine) 4,000 units 01/21/21 17:22 01/21/21 17:33 Heparin Sodium 5,000 Units/Ml Vial IVPUSH 01/21/21 17:23 4,000 units .BOLUS ONE Administration Heparin Sodium/Sodium Chloride 25,000 units in 500 mls @ 37.557 mls/hr 01/21/21 17:23 01/21/21 17:33 Heparin 25,000 Units In 1/2 Ns 500 Ml IV 01/22/21 06:41 12 units/kg/hr ONETIME ONE 37.557 mls/hr Administration 12 UNITS/KG/HR Departure - Departure Time of Disposition: 17:51 Disposition: DC/Tfer to Acute Hospital 02 Reason for Transfer *Q: Other Condition: Serious Clinical Impression: NSTEMI (non-ST elevated myocardial infarction) Referrals: PCP,None [Primary Care Provider] - Forms: Interfacility Transfer EMTALA Care Plan Goals: Discussed the patient's history, examination, lab and EKG results with Dr. Brand. Dr. Brand accepted the patient for continued evaluation and management at [facility] in [place]. The patient will be transported by [facility]. Sepsis Event Note (ED) - Evaluation Sepsis Screening Result: No Definite Risk
== END 2021-01-21 18:05 ==
LOC: DL.ED 16:27
DX: I21.4 Non-ST elevation (NSTEMI) myocardial infarction (principal); I25.10 Atherosclerotic heart disease of native coronary artery without angina pectoris; I10 Essential (primary) hypertension; K21.9 Gastro-esophageal reflux disease without esophagitis; E11.9 Type 2 diabetes mellitus without complications; Z86.16 Personal history of COVID-19; Z88.8 Allergy status to other drugs, medicaments and biological substances; Z79.82 Long term (current) use of aspirin; Z79.02 Long term (current) use of antithrombotics/antiplatelets; Z79.84 Long term (current) use of oral hypoglycemic drugs; Z79.899 Other long term (current) drug therapy
CPT/HCPCS: 36415; 71045; 80053; 84484; 85025; 85379; 85610; 93005; 96365; 99285; J1644

== ENCOUNTER 2021-01-27 20:08 | Emergency (ER) | payer MEDICARE, OTHER ==
[2021-01-27] MEDS ORDERED: Aspirin 81 MG Tab.Chew PO ONE (20:30)
[2021-01-27] MEDS ORDERED: Nitroglycerin 0.4 MG Tab.SL SL PRN (20:30)
[2021-01-27 20:31] VITALS: BP 142/95; PULSE 87
--- NOTE | 2021-01-27 20:51 | EDM.PDOC ---
ED HPI GENERAL MEDICAL PROBLEM - General Chief Complaint: Chest Pain Stated Complaint: CHEST PAIN Time Seen by Provider: 01/27/21 20:25 Source of Information: Reports: Patient History Limitations: Reports: No Limitations - History of Present Illness INITIAL COMMENTS - FREE TEXT/NARRATIVE: ED with c/o chest pressure lasting 1/2 hour. Currently resolved. 2 recent HI's. One occluded stent. Diabetic. Exertional dyspnea No edema. Seen in clinic today. Troponin checked, 0.15. No radiation of pain. No sweating. No nausea. - Related Data Allergies Allergy/AdvReac Type Severity Reaction Status Date / Time methylprednisolone Allergy Other Verified 01/27/21 20:22 Home Meds: Home Meds Pantoprazole [ProTONIX] 40 mg PO DAILY 12/15/14 [History] oxyCODONE 10 mg PO Q6HR PRN 12/15/14 [History] LORazepam [Lorazepam] 1 mg PO BID PRN 10/02/20 [History] Lisinopril/Hydrochlorothiazide [Lisinopril-HCTZ 10-12.5 MG] 1 tab PO DAILY 01/13/21 [History] glipiZIDE [Glucotrol XL] 10 mg PO BIDMEALS 01/13/21 [History] tiZANidine HCl [Tizanidine HCl] 2 mg PO TID PRN 01/13/21 [History] Aspirin [Aspirin EC] 81 mg PO DAILY 01/21/21 [History] Benzonatate [Tessalon Perle] 100 mg PO TID PRN 01/21/21 [History] Clopidogrel Bisulfate [Plavix] 75 mg PO DAILY 01/21/21 [History] Tadalafil [Cialis] 10 mg PO ASDIRECTED PRN 01/21/21 [History] atorvaSTATin Calcium [Lipitor] 40 mg PO DAILY 01/21/21 [History] Past Medical History HEENT History: Reports: Impaired Vision Other HEENT History: WEARS GLASSES Cardiovascular History: Reports: CAD, Hypertension, Stents Respiratory History: Reports: Sleep Apnea Gastrointestinal History: Reports: GERD, Hemorrhoids Genitourinary History: Reports: BPH Musculoskeletal History: Reports: Back Pain, Chronic, Neck Pain, Chronic, Other (See Below) Other Musculoskeletal History: DDD CERVICAL. DDD LUMBAR. 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 Neurological History: Reports: Headaches, Chronic Psychiatric History: Reports: Anxiety, Depression, Other (See Below) Other Psychiatric History: CLAUSTROPHOBIA Endocrine/Metabolic History: Reports: Diabetes, Type II Hematologic History: Reports: Anemia, Other (See Below) Other Hematologic History: ELEVATED LIVER ENZYMES Immunologic History: Reports: None Oncologic (Cancer) History: Reports: None Dermatologic History: Reports: None - Infectious Disease History Infectious Disease History: Reports: Chicken Pox, Novel Coronavirus Other Infectious Disease History: cOVID 19 10/2020 - Past Surgical History Head Surgeries/Procedures: Reports: None HEENT Surgical History: Reports: Tonsillectomy Cardiovascular Surgical History: Reports: None Respiratory Surgical History: Reports: None GI Surgical History: Reports: Colonoscopy, EGD Male Surgical History: Reports: Other (See Below) Other Male Surgeries/Procedures: enlarge prostate Endocrine Surgical History: Reports: None Neurological Surgical History: Reports: None Musculoskeletal Surgical History: Reports: Arthroscopic Knee Other Musculoskeletal Surgeries/Procedures:: BILATERAL MENISCUS REPAIR Oncologic Surgical History: Reports: None Social & Family History - Family History Family Medical History: No Pertinent Family History - Tobacco Use Tobacco Use Status *Q: Never Tobacco User Second Hand Smoke Exposure: No - Caffeine Use Caffeine Use: Reports: None Other Caffeine Use: 1 CUP COFFEE DAILY. 1 SODA DAILY Caffeine Use Comment: 1-2 cups daily - Recreational Drug Use Recreational Drug Use: No ED ROS GENERAL - Review of Systems Review Of Systems: Comprehensive ROS is negative, except as noted in HPI. ED EXAM, GENERAL - Physical Exam Exam: See Below Exam Limited By: No Limitations General Appearance: Alert, No Apparent Distress, Obese Eye Exam: Bilateral Eye: EOMI, PERRL Ears: Normal External Exam, Hearing Grossly Normal Nose: Normal Inspection Throat/Mouth: Normal Inspection, Normal Voice Head: Atraumatic, Normocephalic Neck: Normal Inspection Respiratory/Chest: No Respiratory Distress, Lungs Clear, Normal Breath Sounds Cardiovascular: Normal Peripheral Pulses, Regular Rate, Rhythm, No Murmur GI/Abdominal: Normal Bowel Sounds Back Exam: Normal Inspection Extremities: Normal Inspection, Normal Range of Motion Neurological: Alert, Oriented, Normal Cognition Psychiatric: Normal Affect, Normal Mood Skin Exam: Warm, Dry, Intact, Normal Color #1 Interpretation EKG Date: 01/27/21 Time: 20:18 Rhythm: NSR [place]: Normal P-Wave: Present QRS: Normal Comparison: No Change EKG Interpretation Comments: NSR Course - Vital Signs Last Recorded V/S: Last Vital Signs Temp 97.9 F 01/27/21 20:22 Pulse 87 01/27/21 20:22 Resp 19 01/27/21 20:22 BP 142/95 H 01/27/21 20:22 Pulse Ox 98 01/27/21 20:22 - Orders/Labs/Meds Labs: Laboratory Tests 01/27/21 01/27/21 01/27/21 Range/Units 20:25 20:25 20:25 WBC 9.6 (5.0-10.0) 10^3/uL RBC 5.55 (4.6-6.2) 10^6/uL Hgb 14.6 (14.0-18.0) g/dL Hct 45.1 (40.0-54.0) % MCV 81.3 (80-100) fL MCH 26.3 L (27.0-34.0) pg MCHC 32.4 L (33.0-35.0) g/dL Plt Count 211 (150-450) 10^3/uL Neut % (Auto) 69.9 (42.2-75.2) % Lymph % (Auto) 11.2 L (20.5-50.1) % Coffee % (Auto) 11.8 H (2-8) % Eos % (Auto) 6.4 H (1.0-3.0) % Baso % (Auto) 0.7 (0.0-1.0) % PT 11.0 (9.0-12.0) SEC INR 1.1 (0.9-1.2) D-Dimer, Quantitative 743 H (0-400) ng/mL Sodium 135 L (136-145) mmol/L Potassium 4.0 (3.5-5.1) mmol/L Chloride 98 (98-107) mmol/L Carbon Dioxide 29 (21-32) mmol/L Anion Gap 12.0 (7-13) mEq/L BUN 12 (7-18) mg/dL Creatinine 1.33 H (0.70-1.30) mg/dL Est Cr Clr Drug Dosing 66.95 mL/min Estimated GFR (MDRD) 54 BUN/Creatinine Ratio 9.0 (No establ ref range) Glucose 223 H (74-99) mg/dL Calcium 8.8 (8.5-10.1) mg/dL Magnesium 1.6 L (1.8-2.4) mg/dL Total Bilirubin 0.6 (0.2-1.0) mg/dL AST 21 (15-37) U/L ALT 43 (16-63) U/L Alkaline Phosphatase 131 H (46-116) U/L Troponin I (0.000-0.056) ng/mL B-Natriuretic Peptide 51 (0-100) pg/ml Total Protein 7.2 (6.4-8.2) g/dL Albumin 3.3 L (3.4-5.0) g/dL Globulin 3.9 Albumin/Globulin Ratio 0.85 Amylase 47 (25-115) U/L Urine Color (YELLOW) Urine Appearance (CLEAR) Urine pH (5.0-9.0) Ur Specific [place] (1.005-1.030) Urine Protein (NEGATIVE) Urine Glucose (UA) (NEGATIVE) Urine Ketones (NEGATIVE) Urine Occult Blood (NEGATIVE) Urine Nitrite (NEGATIVE) Urine Bilirubin (NEGATIVE) Urine Urobilinogen (0.2-1.0) mg/dL Ur Leukocyte Esterase (NEGATIVE) Urine RBC /HPF Urine WBC (0-5/HPF) /HPF Ur Epithelial Cells (NOT SEEN) /HPF Amorphous Sediment (NOT SEEN) /HPF Urine Bacteria (0-FEW/HPF) /HPF Urine Mucus (NOT SEEN) /LPF 01/27/21 01/27/21 Range/Units 20:25 21:55 WBC (5.0-10.0) 10^3/uL RBC (4.6-6.2) 10^6/uL Hgb (14.0-18.0) g/dL Hct (40.0-54.0) % MCV (80-100) fL MCH (27.0-34.0) pg MCHC (33.0-35.0) g/dL Plt Count (150-450) 10^3/uL Neut % (Auto) (42.2-75.2) % Lymph % (Auto) (20.5-50.1) % Coffee % (Auto) (2-8) % Eos % (Auto) (1.0-3.0) % Baso % (Auto) (0.0-1.0) % PT (9.0-12.0) SEC INR (0.9-1.2) D-Dimer, Quantitative (0-400) ng/mL Sodium (136-145) mmol/L Potassium (3.5-5.1) mmol/L Chloride (98-107) mmol/L Carbon Dioxide (21-32) mmol/L Anion Gap (7-13) mEq/L BUN (7-18) mg/dL Creatinine (0.70-1.30) mg/dL Est Cr Clr Drug Dosing mL/min Estimated GFR (MDRD) BUN/Creatinine Ratio (No establ ref range) Glucose (74-99) mg/dL Calcium (8.5-10.1) mg/dL Magnesium (1.8-2.4) mg/dL Total Bilirubin (0.2-1.0) mg/dL AST (15-37) U/L ALT (16-63) U/L Alkaline Phosphatase (46-116) U/L Troponin I 0.091 H* (0.000-0.056) ng/mL B-Natriuretic Peptide (0-100) pg/ml Total Protein (6.4-8.2) g/dL Albumin (3.4-5.0) g/dL Globulin Albumin/Globulin Ratio Amylase (25-115) U/L Urine Color Yellow (YELLOW) Urine Appearance Clear (CLEAR) Urine pH 6.0 (5.0-9.0) Ur Specific [place] 1.015 (1.005-1.030) Urine Protein Negative (NEGATIVE) Urine Glucose (UA) Negative (NEGATIVE) Urine Ketones Negative (NEGATIVE) Urine Occult Blood Negative (NEGATIVE) Urine Nitrite Negative (NEGATIVE) Urine Bilirubin Negative (NEGATIVE) Urine Urobilinogen 0.2 (0.2-1.0) mg/dL Ur Leukocyte Esterase Negative (NEGATIVE) Urine RBC Not seen /HPF Urine WBC 0-5 (0-5/HPF) /HPF Ur Epithelial Cells Rare (NOT SEEN) /HPF Amorphous Sediment Rare (NOT SEEN) /HPF Urine Bacteria Rare (0-FEW/HPF) /HPF Urine Mucus Few H (NOT SEEN) /LPF Meds: Medications Discontinued Medications Generic Name Dose Route Start Last Admin Trade Name Freq PRN Reason Stop Dose Admin Aspirin 324 mg 01/27/21 20:30 01/27/21 21:23 Aspirin 81 Mg Tab.Chew PO 01/27/21 20:31 324 mg ONETIME ONE Administration Heparin Sodium (Porcine) 4,000 units 01/27/21 21:58 01/27/21 22:09 Heparin Sodium 5,000 Units/Ml Vial IVPUSH 01/27/21 21:59 4,000 units .BOLUS ONE Administration Heparin Sodium/Sodium Chloride 25,000 units in 500 mls @ 37.841 mls/hr 01/27/21 22:00 01/27/21 22:11 Heparin 25,000 Units In 1/2 Ns 500 Ml IV 12 units/kg/hr TITRATE ALMA 37.841 mls/hr Administration Protocol 12 UNITS/KG/HR Nitroglycerin 0.4 mg 01/27/21 20:30 Nitroglycerin 0.4 Mg Tab.Sl SL 01/28/21 20:31 Q5M PRN Chest Pain - Re-Assessments/Exams Free Text/Narrative Re-Assessment/Exam: 01/28/21 02:[address] Erica CHANDRA Hospitalist, recommend tx to [facility]. Dr Leal accepting patient for transfer. Tx via [facility]. Departure - Departure Time of Disposition: 23:05 Disposition: DC/Tfer to Acute Hospital 02 Reason for Transfer *Q: Other Condition: Good, Undetermined Clinical Impression: NSTEMI (non-ST elevated myocardial infarction) Referrals: PCP,None [Primary Care Provider] - Forms: ED Department Discharge Sepsis Event Note (ED) - Evaluation Sepsis Screening Result: No Definite Risk - Focused Exam Vital Signs: Vital Signs Temp Pulse Resp BP Pulse Ox 01/27/21 20:22 97.9 F 87 19 142/95 H 98
--- NOTE | 2021-01-27 20:59 | CR ---
PROCEDURE INFORMATION: Exam: XR Chest Exam date and time: 01/27/2021 8:38 PM Age: 60 years old Clinical indication: Chest pain TECHNIQUE: Imaging protocol: XR of the chest Views: 1 view. COMPARISON: CR Chest 1V Frontal 01/21/2021 5:18 PM FINDINGS: Lungs: Lungs are clear bilaterally. Pleural spaces: No pleural effusion. No pneumothorax. Heart/Mediastinum: Stable mild enlargement of the cardiac silhouette. Mediastinal contours are unremarkable. Bones/joints: Unremarkable for age. IMPRESSION: 1. No acute cardiopulmonary process. 2. Incidental/nonacute findings are listed in the report.
[2021-01-27] MEDS ORDERED: Heparin Sodium 5,000 Units/ML Vial IVPUSH ONE (21:58)
[2021-01-27] MEDS ORDERED: Heparin Sodium/0.45% NaCl 25,000 UNITS/500 ML BAG IV SCH (22:00)
== END 2021-01-27 22:50 ==
LOC: DL.ED 20:08
DX: I21.4 Non-ST elevation (NSTEMI) myocardial infarction (principal); I25.10 Atherosclerotic heart disease of native coronary artery without angina pectoris; I10 Essential (primary) hypertension; K21.9 Gastro-esophageal reflux disease without esophagitis; E11.9 Type 2 diabetes mellitus without complications; E66.9 Obesity, unspecified; Z88.8 Allergy status to other drugs, medicaments and biological substances; Z79.02 Long term (current) use of antithrombotics/antiplatelets; Z79.82 Long term (current) use of aspirin; Z79.84 Long term (current) use of oral hypoglycemic drugs; Z79.899 Other long term (current) drug therapy; Z68.41 Body mass index [BMI] 40.0-44.9, adult
CPT/HCPCS: 36415; 71045; 80053; 81001; 82150; 83735; 83880; 84484; 85025; 85379; 85610; 93005; 96365; 99285; A9270; J1644; 93010; 99284

== ENCOUNTER 2021-02-05 11:56 | Emergency (ER) | payer MEDICARE, OTHER ==
[2021-02-05 12:50] LABS: PTT,PARTIAL THROMBOPLSTIN TIME 23.8 SEC (22.0-34.0)
[2021-02-05 12:53] LABS: ANION GAP 9.5 mEq/L (7-13); CHLORIDE,CL 100 mmol/L (98-107); SODIUM,NA 136 mmol/L (136-145)
[2021-02-05 12:54] VITALS: BP 121/56
[2021-02-05 13:03] VITALS: PULSE 70
--- NOTE | 2021-02-05 13:38 | EDM.PDOC ---
<Mahin Pinon Raghu - Last Filed: 02/05/21 13:38> ED HPI GENERAL MEDICAL PROBLEM - General Chief Complaint: Cardiovascular Problem Stated Complaint: BP LOW Time Seen by Provider: 02/05/21 12:10 Source of Information: Reports: Patient History Limitations: Reports: No Limitations - History of Present Illness INITIAL COMMENTS - FREE TEXT/NARRATIVE: 60 y/o M c/o lightheadedness since this morning. Pt states when his symptoms began he was at rest and felt like he was going to pass out. States he has been having dark red stool for over a year but it has increased in severity in the last month due to being placed on Plavix. Has had mutliple loose stools but states that is normal for him to have changes in bowel habits. Denies MAJANO, cp, db, abd pn, pelvic pn, diff voiding, extremity pain, fever, cough, chills Onset: Today Duration: Hour(s): Location: Reports: Generalized - Related Data Allergies Allergy/AdvReac Type Severity Reaction Status Date / Time methylprednisolone Allergy Other Verified 01/27/21 20:22 Home Meds: Home Meds Pantoprazole [ProTONIX] 40 mg PO DAILY 12/15/14 [History] oxyCODONE 10 mg PO Q6HR PRN 12/15/14 [History] LORazepam [Lorazepam] 1 mg PO BID PRN 10/02/20 [History] Lisinopril/Hydrochlorothiazide [Lisinopril-HCTZ 10-12.5 MG] 1 tab PO DAILY 01/13/21 [History] glipiZIDE [Glucotrol XL] 10 mg PO BIDMEALS 01/13/21 [History] tiZANidine HCl [Tizanidine HCl] 2 mg PO TID PRN 01/13/21 [History] Aspirin [Aspirin EC] 81 mg PO DAILY 01/21/21 [History] Benzonatate [Tessalon Perle] 100 mg PO TID PRN 01/21/21 [History] Clopidogrel Bisulfate [Plavix] 75 mg PO DAILY 01/21/21 [History] Tadalafil [Cialis] 10 mg PO ASDIRECTED PRN 01/21/21 [History] atorvaSTATin Calcium [Lipitor] 40 mg PO DAILY 01/21/21 [History] Past Medical History HEENT History: Reports: Impaired Vision Other HEENT History: WEARS GLASSES Cardiovascular History: Reports: CAD, Hypertension, Stents Respiratory History: Reports: Sleep Apnea Gastrointestinal History: Reports: GERD, Hemorrhoids Genitourinary History: Reports: BPH Musculoskeletal History: Reports: Back Pain, Chronic, Neck Pain, Chronic, Other (See Below) Other Musculoskeletal History: DDD CERVICAL. DDD LUMBAR. 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 Neurological History: Reports: Headaches, Chronic Psychiatric History: Reports: Anxiety, Depression, Other (See Below) Other Psychiatric History: CLAUSTROPHOBIA Endocrine/Metabolic History: Reports: Diabetes, Type II Hematologic History: Reports: Anemia, Other (See Below) Other Hematologic History: ELEVATED LIVER ENZYMES Immunologic History: Reports: None Oncologic (Cancer) History: Reports: None Dermatologic History: Reports: None - Infectious Disease History Infectious Disease History: Reports: Chicken Pox, Novel Coronavirus Other Infectious Disease History: cOVID 19 10/2020 - Past Surgical History Head Surgeries/Procedures: Reports: None HEENT Surgical History: Reports: Tonsillectomy Cardiovascular Surgical History: Reports: None Respiratory Surgical History: Reports: None GI Surgical History: Reports: Colonoscopy, EGD Male Surgical History: Reports: Other (See Below) Other Male Surgeries/Procedures: enlarge prostate Endocrine Surgical History: Reports: None Neurological Surgical History: Reports: None Musculoskeletal Surgical History: Reports: Arthroscopic Knee Other Musculoskeletal Surgeries/Procedures:: BILATERAL MENISCUS REPAIR Oncologic Surgical History: Reports: None Social & Family History - Family History Family Medical History: No Pertinent Family History - Tobacco Use Tobacco Use Status *Q: Current Status Unknown - Caffeine Use Caffeine Use: Reports: Coffee Other Caffeine Use: 1 CUP COFFEE DAILY. 1 SODA DAILY Caffeine Use Comment: 1-2 cups daily - Recreational Drug Use Recreational Drug Use: No ED ROS GENERAL - Review of Systems Review Of Systems: Comprehensive ROS is negative, except as noted in HPI. ED EXAM, GENERAL - Physical Exam Exam: See Below Exam Limited By: No Limitations General Appearance: Alert, WD/WN, No Apparent Distress Eye Exam: Bilateral Eye: PERRL Throat/Mouth: Normal Inspection, Normal Lips, Normal Teeth, Normal Gums, Normal Oropharynx, Normal Voice, No Airway Compromise Head: Atraumatic, Normocephalic Neck: Normal Inspection, Supple, Non-Tender, Full Range of Motion Respiratory/Chest: No Respiratory Distress, Lungs Clear, Normal Breath Sounds, No Accessory Muscle Use, Chest Non-Tender Cardiovascular: Normal Peripheral Pulses, Regular Rate, Rhythm, No Edema, No Gallop, No JVD, No Murmur, No Rub GI/Abdominal: Normal Bowel Sounds, Soft, Non-Tender, No Organomegaly, No Distention, No Abnormal Bruit, No Mass (Male) Exam: Deferred Rectal (Males) Exam: Normal Rectal Tone, Prostate Normal, Heme + Stool Back Exam: Normal Inspection, Full Range of Motion, NT Extremities: Normal Inspection, Normal Range of Motion, Non-Tender, Normal Capillary Refill, No Pedal Edema Neurological: Alert, Oriented, CN II-XII Intact, Normal Cognition, Normal Gait, Normal Reflexes, No Motor/Sensory Deficits Psychiatric: Normal Affect, Normal Mood Skin Exam: Warm, Dry, Intact, Normal Color, No Rash Course - Re-Assessments/Exams Free Text/Narrative Re-Assessment/Exam: 02/05/21 13:39 discussed lab findings, physical exam with pt. Informed pt that he requires further evaluation of GI bleed at a higher level of care. Pt agreed to be transf erred to [facility] for higher level of care and further work up. Pt adamantly refuses ambulance ride and states he will have his drive him over. Explained risk of severe medical complications that could occur en route to [facility] and that not going with EMS would put the patient in a position to not have medical care in transit. Pt understood the risk and still wished to have his drive him. Departure - Departure Time of Disposition: 13:45 Disposition: DC/Tfer to Acute Hospital 02 Preliminary Cause of *Q: Sepsis & Multi System Organ Failure Reason for Transfer *Q: Other Condition: Fair Clinical Impression: Near syncope GI bleed Qualifiers: GI bleed type/associated pathology: melena Qualified Code(s): K92.1 - Melena Forms: ED Department Discharge Additional Instructions: Go directly to [facility] for direct admission. Do not eat or drink until you have been evaluated by a physician. Sepsis Event Note (ED) - Evaluation Sepsis Screening Result: No Definite Risk <Avni Mccord - Last Filed: 02/05/21 13:51> #1 Interpretation EKG Date: 02/05/21 Time: 12:03 Rhythm: Other (SR) Rate (Beats/Min): 70 [place]: Normal P-Wave: Present QRS: Normal ST-T: Normal QT: Normal Comparison: No Change #2 Interpretation EKG Date: 02/05/21 Time: 12:54 Rhythm: Other (SR) Rate (Beats/Min): 65 [place]: Normal P-Wave: Present QRS: Normal ST-T: Normal QT: Normal Comparison: No Change Course - Vital Signs Last Recorded V/S: Last Vital Signs Temp 97.9 F 02/05/21 12:17 Pulse 70 02/05/21 12:59 Resp 15 02/05/21 12:54 BP 121/56 L 02/05/21 12:54 Pulse Ox 95 02/05/21 12:54 Orthostatic Blood Pressure [ 118/62 Standing] Orthostatic Blood Pressure [ 114/64 Sitting] Orthostatic Blood Pressure [ 113/53 Supine] - Orders/Labs/Meds Orders: Active Orders 24 hr Category Date Time Status EKG 12 Lead [EKG Documentation Completion] [] STAT Care 02/05/21 12:18 Active EKG Documentation Completion [] STAT Care 02/05/21 12:51 Active Labs: Laboratory Tests 02/05/21 02/05/21 02/05/21 Range/Units 12:27 12:27 12:27 WBC 6.5 (5.0-10.0) 10^3/uL RBC 4.85 (4.6-6.2) 10^6/uL Hgb 12.9 L D (14.0-18.0) g/dL Hct 40.1 (40.0-54.0) % MCV 82.7 (80-100) fL MCH 26.6 L (27.0-34.0) pg MCHC 32.2 L (33.0-35.0) g/dL Plt Count 219 (150-450) 10^3/uL Neut % (Auto) 69.7 (42.2-75.2) % Lymph % (Auto) 13.5 L (20.5-50.1) % [place] % (Auto) 9.1 H (2-8) % Eos % (Auto) 6.6 H (1.0-3.0) % Baso % (Auto) 1.1 H (0.0-1.0) % PT 10.9 (9.0-12.0) SEC INR 1.1 (0.9-1.2) APTT 23.8 (22.0-34.0) SEC Sodium 136 (136-145) mmol/L Potassium 4.5 (3.5-5.1) mmol/L Chloride 100 (98-107) mmol/L Carbon Dioxide 31 (21-32) mmol/L Anion Gap 9.5 (7-13) mEq/L BUN 12 (7-18) mg/dL Creatinine 1.29 (0.70-1.30) mg/dL Est Cr Clr Drug Dosing TNP Estimated GFR (MDRD) 56 BUN/Creatinine Ratio 9.3 (No establ ref range) Glucose 227 H (70-99) mg/dL Calcium 8.3 L (8.5-10.1) mg/dL Total Bilirubin 0.6 (0.2-1.0) mg/dL AST 25 (15-37) U/L ALT 47 (16-63) U/L Alkaline Phosphatase 97 (46-116) U/L Troponin I < 0.017 (0.000-0.056) ng/mL B-Natriuretic Peptide 36 (0-100) pg/ml Total Protein 6.4 (6.4-8.2) g/dL Albumin 3.2 L (3.4-5.0) g/dL Globulin 3.2 Albumin/Globulin Ratio 1.00 - Re-Assessments/Exams Free Text/Narrative Re-Assessment/Exam: 02/05/21 13:51 I personally performed or re-performed the physical examination and medical decision making. I have verified all student documentation or findings, including history, physical exam and/or medical decision making. Sepsis Event Note (ED) - Focused Exam Vital Signs: Vital Signs Temp Pulse Resp BP Pulse Ox 02/05/21 12:59 70 02/05/21 12:54 69 15 121/56 L 95 02/05/21 12:17 97.9 F 02/05/21 12:10 70 16 128/70 100 - My Orders Last 24 Hours: My Active Orders 02/05/21 12:18 EKG 12 Lead [EKG Documentation Completion] [RC] STAT - Assessment/Plan Last 24 Hours: My Active Orders 02/05/21 12:18 EKG 12 Lead [EKG Documentation Completion] [RC] STAT
== END 2021-02-05 13:55 ==
LOC: DL.ED 11:56
DX: K92.1 Melena (principal); R55 Syncope and collapse; I25.10 Atherosclerotic heart disease of native coronary artery without angina pectoris; I10 Essential (primary) hypertension; K21.9 Gastro-esophageal reflux disease without esophagitis; N40.0 Benign prostatic hyperplasia without lower urinary tract symptoms; E11.9 Type 2 diabetes mellitus without complications; Z79.82 Long term (current) use of aspirin; Z79.84 Long term (current) use of oral hypoglycemic drugs; Z79.899 Other long term (current) drug therapy; Z88.8 Allergy status to other drugs, medicaments and biological substances; Z95.5 Presence of coronary angioplasty implant and graft
CPT/HCPCS: 36415; 80053; 82272; 83880; 84484; 85025; 85610; 85730; 93005; 93010; 99284; 99285-25

== ENCOUNTER 2021-03-05 16:31 | Emergency (ER) | payer MEDICARE, OTHER ==
[2021-03-05 16:47] VITALS: BP 142/85; PULSE 78
[2021-03-05] MEDS ORDERED: Sodium Chloride 0.9% 10 ML Syringe FLUSH PRN (16:50)
--- NOTE | 2021-03-05 17:01 | EDM.PDOC ---
ED HPI GENERAL MEDICAL PROBLEM - General Chief Complaint: Chest Pain Stated Complaint: CHEST PAIN, HURTS NOW AND THEN Time Seen by Provider: 03/05/21 16:40 Source of Information: Reports: Patient, Family (), Old Records, RN, RN Notes Reviewed History Limitations: Reports: No Limitations - History of Present Illness INITIAL COMMENTS - FREE TEXT/NARRATIVE: Pt presents to ER with c/o intermittent sharp chest pains that began yesterday, and have randomly returned several times. Pt describes a sharp shooting pain that begins in the right chest and radiates to the left. Denies palpitations, shortness of breath, lightheadedness, or any other symptoms. Pt states he is very anxious since he had an AK, then chose not to take the Plavix because of the side effect information that accompanied the medication, no realizing that it was very important following the stent placement. As a result one of the stents occluded and could not be reopened. 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: Reports: Other Medication(s) - Related Data Allergies Allergy/AdvReac Type Severity Reaction Status Date / Time methylprednisolone Allergy Other Verified 03/05/21 16:47 Home Meds: Home Meds Pantoprazole [ProTONIX] 40 mg PO DAILY 12/15/14 [History] oxyCODONE 10 mg PO Q6HR PRN 12/15/14 [History] LORazepam [Lorazepam] 1 mg PO BID PRN 10/02/20 [History] Lisinopril/Hydrochlorothiazide [Lisinopril-HCTZ 10-12.5 MG] 1 tab PO DAILY 01/13/21 [History] glipiZIDE [Glucotrol XL] 10 mg PO BIDMEALS 01/13/21 [History] tiZANidine HCl [Tizanidine HCl] 2 mg PO TID PRN 01/13/21 [History] Aspirin [Aspirin EC] 81 mg PO DAILY 01/21/21 [History] Benzonatate [Tessalon Perle] 100 mg PO TID PRN 01/21/21 [History] Clopidogrel Bisulfate [Plavix] 75 mg PO DAILY 01/21/21 [History] Tadalafil [Cialis] 10 mg PO ASDIRECTED PRN 01/21/21 [History] atorvaSTATin Calcium [Lipitor] 40 mg PO DAILY 01/21/21 [History] Past Medical History HEENT History: Reports: Impaired Vision Other HEENT History: WEARS GLASSES Cardiovascular History: Reports: CAD, Hypertension, Stents Respiratory History: Reports: Sleep Apnea Gastrointestinal History: Reports: GERD, Hemorrhoids Genitourinary History: Reports: BPH Musculoskeletal History: Reports: Back Pain, Chronic, Neck Pain, Chronic, Other (See Below) Other Musculoskeletal History: DDD CERVICAL. DDD LUMBAR. 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 Neurological History: Reports: Headaches, Chronic Psychiatric History: Reports: Anxiety, Depression, Other (See Below) Other Psychiatric History: CLAUSTROPHOBIA Endocrine/Metabolic History: Reports: Diabetes, Type II Hematologic History: Reports: Anemia, Other (See Below) Other Hematologic History: ELEVATED LIVER ENZYMES Immunologic History: Reports: None Oncologic (Cancer) History: Reports: None Dermatologic History: Reports: None - Infectious Disease History Infectious Disease History: Reports: Chicken Pox, Novel Coronavirus Other Infectious Disease History: cOVID 10/2020 - Past Surgical History Head Surgeries/Procedures: Reports: None HEENT Surgical History: Reports: Tonsillectomy Cardiovascular Surgical History: Reports: None Respiratory Surgical History: Reports: None GI Surgical History: Reports: Colonoscopy, EGD Male Surgical History: Reports: Other (See Below) Other Male Surgeries/Procedures: enlarge prostate Endocrine Surgical History: Reports: None Neurological Surgical History: Reports: None Musculoskeletal Surgical History: Reports: Arthroscopic Knee Other Musculoskeletal Surgeries/Procedures:: BILATERAL MENISCUS REPAIR Oncologic Surgical History: Reports: None Social & Family History - Family History Family Medical History: No Pertinent Family History - Tobacco Use Tobacco Use Status *Q: Never Tobacco User - Caffeine Use Caffeine Use: Reports: Coffee Other Caffeine Use: 1 CUP COFFEE DAILY. 1 SODA DAILY Caffeine Use Comment: 1-2 cups daily - Recreational Drug Use Recreational Drug Use: No - Living Situation & Occupation Living situation: Reports: , with Spouse ED ROS GENERAL - Review of Systems Review Of Systems: Comprehensive ROS is negative, except as noted in HPI. ED EXAM, GENERAL - Physical Exam Exam: See Below Exam Limited By: No Limitations General Appearance: Alert, WD/WN, No Apparent Distress, Obese Eye Exam: Bilateral Eye: Normal Inspection Nose: Normal Inspection Throat/Mouth: Normal Inspection, Normal Lips, Normal Voice, No Airway Compromise Head: Atraumatic, Normocephalic Neck: Normal Inspection Respiratory/Chest: No Respiratory Distress, Lungs Clear, Normal Breath Sounds, No Accessory Muscle Use, Chest Non-Tender Cardiovascular: Regular Rate, Rhythm, No Edema, No Murmur GI/Abdominal: Normal Bowel Sounds, Soft, Non-Tender Extremities: Normal Inspection, Normal Range of Motion, Non-Tender, Normal Capillary Refill, No Pedal Edema Neurological: Alert, Oriented, No Motor/Sensory Deficits Psychiatric: Anxious Skin Exam: Warm, Dry, Intact, Normal Color, No Rash #1 Interpretation EKG Date: 03/05/21 Time: 16:47 Rhythm: Other (SR) Rate (Beats/Min): 78 [place]: LAD-Left [place] Deviation P-Wave: Present QRS: Normal ST-T: Normal QT: Normal Comparison: No Change Course - Vital Signs Last Recorded V/S: Last Vital Signs Temp 97.2 F 03/05/21 16:46 Pulse 78 03/05/21 16:46 Resp 12 03/05/21 16:46 BP 142/85 H 03/05/21 16:46 Pulse Ox 98 03/05/21 16:46 - Orders/Labs/Meds Orders: Active Orders 24 hr Category Date Time Status EKG 12 Lead [EKG Documentation Completion] [RC] STAT Care 03/05/21 16:39 Active Peripheral IV Care [RC] . DIRECTED Care 03/05/21 16:51 Active Sodium Chloride 0.9% [Saline Flush] Med 03/05/21 16:50 Active 10 ml FLUSH ASDIRECTED PRN Peripheral IV Insertion Adult [OM.PC] Stat Oth 03/05/21 16:51 Ordered Medication Orders Sodium Chloride (Sodium Chloride 0.9% 10 Ml Syringe) 10 ml FLUSH ASDIRECTED PRN PRN Reason: Keep Vein Open Last Admin: 03/05/21 16:52 Dose: 10 ml Documented by: JOY Labs: Laboratory Tests 03/05/21 03/05/21 Range/Units 16:42 16:42 WBC 9.2 (5.0-10.0) 10^3/uL RBC 4.92 (4.6-6.2) 10^6/uL Hgb 12.8 L (14.0-18.0) g/dL Hct 40.0 (40.0-54.0) % MCV 81.3 (80-100) fL MCH 26.0 L (27.0-34.0) pg MCHC 32.0 L (33.0-35.0) g/dL Plt Count 288 (150-450) 10^3/uL Neut % (Auto) 73.0 (42.2-75.2) % Lymph % (Auto) 14.4 L (20.5-50.1) % [place] % (Auto) 10.6 H (2-8) % Eos % (Auto) 1.5 (1.0-3.0) % Baso % (Auto) 0.5 (0.0-1.0) % Add Manual Diff Yes Neutrophils % (Manual) 74 (42-75) % Band Neutrophils % 1 % Lymphocytes % (Manual) 15 L (20-50) % Monocytes % (Manual) 10 H (2-8) % Sodium 136 (136-145) mmol/L Potassium 4.3 (3.5-5.1) mmol/L Chloride 98 (98-107) mmol/L Carbon Dioxide 28 (21-32) mmol/L Anion Gap 14.3 H (7-13) mEq/L BUN 17 (7-18) mg/dL Creatinine 1.08 (0.70-1.30) mg/dL Est Cr Clr Drug Dosing TNP Estimated GFR (MDRD) > 60 BUN/Creatinine Ratio 15.7 (No establ ref range) Glucose 152 H (70-99) mg/dL Calcium 8.4 L (8.5-10.1) mg/dL Total Bilirubin 0.9 (0.2-1.0) mg/dL AST 41 H (15-37) U/L ALT 47 (16-63) U/L Alkaline Phosphatase 104 (46-116) U/L Troponin I < 0.017 (0.000-0.056) ng/mL B-Natriuretic Peptide 43 (0-100) pg/ml Total Protein 7.2 (6.4-8.2) g/dL Albumin 3.4 (3.4-5.0) g/dL Globulin 3.8 Albumin/Globulin Ratio 0.9 Meds: Medications Generic Name Dose Route Start Last Admin Trade Name Freq PRN Reason Stop Dose Admin Sodium Chloride 10 ml 03/05/21 16:50 03/05/21 16:52 Sodium Chloride 0.9% 10 Ml Syringe FLUSH 10 ml ASDIRECTED PRN Administration Keep Vein Open - Radiology Interpretation Free Text/Narrative:: [facility] Call: [phone] assistance Online chat: [email or web address] Name: SILVIA CISSE Age: 61Years M Date: 03/05/2021 SSN: -- : 1960 Study: CR CHEST 1V FRONTAL Requesting Physician: TASHI MURO Images: 1 Addl Studies: Provided Clinical History: chest pain Contrast: Contrast Medium: Contrast Amount: Contrast Method: CONFIDENTIALITY STATEMENT This report is intended only for use by the referring physician, and only in accordance with law. If you received this in error, call [phone]. Page 1 of 1 PROCEDURE INFORMATION: Exam: XR Chest Exam date and time: 03/05/2021 5:39 PM Age: 61 years old Clinical indication: Other: Chest pain TECHNIQUE: Imaging protocol: XR of the chest. Views: 1 view. COMPARISON: CR Chest 1V Frontal 01/27/2021 8:38 PM FINDINGS: Limitations: Study limited by body habitus issues Lungs: Unremarkable. No consolidation. Pleural spaces: Unremarkable. No pleural effusion. No pneumothorax. Heart/Mediastinum: Unremarkable. No cardiomegaly. Bones/joints: Unremarkable. IMPRESSION: 1. No acute findings. 2. No change. Thank you for allowing us to participate in the care of your patient. Dictated and Authenticated by: Guicho Cummings MD 03/05/2021 5:47 PM Central Time ([place] & [place]) Departure - Departure Time of Disposition: 18:06 Disposition: Home, Self-Care 01 Condition: Good Clinical Impression: Chest pain, non-cardiac Instructions: Nonspecific Chest Pain, Adult Forms: ED Department Discharge Additional Instructions: Take your medications as prescribed. Follow up with your clinic doctor next week if symptoms persist. Return to ER if chest pain worsens or if new or concerning symptoms develop. Sepsis Event Note (ED) - Evaluation Sepsis Screening Result: No Definite Risk - Focused Exam Vital Signs: Vital Signs Temp Pulse Resp BP Pulse Ox 03/05/21 16:46 97.2 F 78 12 142/85 H 98 - My Orders Last 24 Hours: My Active Orders 03/05/21 16:39 EKG 12 Lead [EKG Documentation Completion] [RC] STAT 03/05/21 16:50 Sodium Chloride 0.9% [Saline Flush] 10 ml FLUSH ASDIRECTED PRN 03/05/21 16:51 Peripheral IV Care [RC] . DIRECTED Peripheral IV Insertion Adult [OM.PC] Stat - Assessment/Plan Last 24 Hours: My Active Orders 03/05/21 16:39 EKG 12 Lead [EKG Documentation Completion] [RC] STAT 03/05/21 16:50 Sodium Chloride 0.9% [Saline Flush] 10 ml FLUSH ASDIRECTED PRN 03/05/21 16:51 Peripheral IV Care [RC] . DIRECTED Peripheral IV Insertion Adult [OM.PC] Stat
[2021-03-05 17:13] LABS: ANION GAP 14.3 mEq/L (7-13); CHLORIDE,CL 98 mmol/L (98-107); SODIUM,NA 136 mmol/L (136-145)
--- NOTE | 2021-03-05 17:47 | CR ---
PROCEDURE INFORMATION: Exam: XR Chest Exam date and time: 03/05/2021 5:39 PM Age: 61 years old Clinical indication: Other: Chest pain TECHNIQUE: Imaging protocol: XR of the chest. Views: 1 view. COMPARISON: CR Chest 1V Frontal 01/27/2021 8:38 PM FINDINGS: Limitations: Study limited by body habitus issues Lungs: Unremarkable. No consolidation. Pleural spaces: Unremarkable. No pleural effusion. No pneumothorax. Heart/Mediastinum: Unremarkable. No cardiomegaly. Bones/joints: Unremarkable. IMPRESSION: 1. No acute findings. 2. No change.
== END 2021-03-05 18:10 | disposition home or self-care (01) ==
LOC: DL.ED 16:31
DX: R07.89 Other chest pain (principal); E11.9 Type 2 diabetes mellitus without complications; I25.10 Atherosclerotic heart disease of native coronary artery without angina pectoris; I10 Essential (primary) hypertension; K21.9 Gastro-esophageal reflux disease without esophagitis; Z88.8 Allergy status to other drugs, medicaments and biological substances; Z79.82 Long term (current) use of aspirin; Z79.02 Long term (current) use of antithrombotics/antiplatelets; Z79.84 Long term (current) use of oral hypoglycemic drugs; Z95.5 Presence of coronary angioplasty implant and graft
CPT/HCPCS: 36415; 71045; 80053; 83880; 84484; 85025; 93005; 93010; 99284; 99285-25

== ENCOUNTER 2021-03-25 18:05 | Emergency (ER) | payer MEDICARE, OTHER ==
[2021-03-25 20:02] VITALS: BP 133/77; PULSE 83
[2021-03-25 20:10] LABS: PTT,PARTIAL THROMBOPLSTIN TIME 22.4 SEC (22.0-34.0)
[2021-03-25 20:37] LABS: ANION GAP 10.1 mEq/L (7-13); CHLORIDE,CL 100 mmol/L (98-107); SODIUM,NA 137 mmol/L (136-145)
--- NOTE | 2021-03-25 21:22 | EDM.PDOC ---
ED HPI GENERAL MEDICAL PROBLEM - General Chief Complaint: Gastrointestinal Problem Stated Complaint: HEMOGLOBIN IS LOW Time Seen by Provider: 03/25/21 20:05 Source of Information: Reports: Patient, Family (), Old Records, RN, RN Notes Reviewed History Limitations: Reports: No Limitations - History of Present Illness INITIAL COMMENTS - FREE TEXT/NARRATIVE: Quique is a 61 y/o male who presents to the ED via personal vehicle at the request of Dr. Riley for complaints of rectal bleeding. The patient reports this has been an ongoing problem for him for the past several years as he has a history of internal and external hemorrhoids, however the rectal bleeding has increased when he started Plavix earlier this year following an CA with stent placement. He states he was in clinic earlier today for routine blood work and was notified by Dr. Riley's office that his hemoglobin was low; he was instructed to present to the ED. The patient denies fever, shaking chills, shortness of breath, palpitations, dyspepsia, abdominal pain, hematemesis, melena, or rectal pain. He notes general malaise, weakness, transient chest tightness, and neeraj red blood on the toilet paper following defecation. He denies neeraj red blood within the toilet bowl. The patient has not taken any medications for this problem. - Related Data Allergies Allergy/AdvReac Type Severity Reaction Status Date / Time methylprednisolone Allergy Other Verified 03/05/21 16:47 Home Meds: Home Meds Pantoprazole [ProTONIX] 40 mg PO DAILY 12/15/14 [History] oxyCODONE 10 mg PO Q6HR PRN 12/15/14 [History] LORazepam [Lorazepam] 1 mg PO BID PRN 10/02/20 [History] Lisinopril/Hydrochlorothiazide [Lisinopril-HCTZ 10-12.5 MG] 1 tab PO DAILY 01/13/21 [History] glipiZIDE [Glucotrol XL] 10 mg PO BIDMEALS 01/13/21 [History] tiZANidine HCl [Tizanidine HCl] 2 mg PO TID PRN 01/13/21 [History] Aspirin [Aspirin EC] 81 mg PO DAILY 01/21/21 [History] Benzonatate [Tessalon Perle] 100 mg PO TID PRN 01/21/21 [History] Clopidogrel Bisulfate [Plavix] 75 mg PO DAILY 01/21/21 [History] Tadalafil [Cialis] 10 mg PO ASDIRECTED PRN 01/21/21 [History] atorvaSTATin Calcium [Lipitor] 40 mg PO DAILY 01/21/21 [History] Past Medical History HEENT History: Reports: Impaired Vision Other HEENT History: WEARS GLASSES Cardiovascular History: Reports: CAD, Hypertension, CA, Stents Other Cardiovascular History: 3 CA in last 2 months Respiratory History: Reports: Sleep Apnea Gastrointestinal History: Reports: GERD, Hemorrhoids Genitourinary History: Reports: BPH Musculoskeletal History: Reports: Back Pain, Chronic, Neck Pain, Chronic, Other (See Below) Other Musculoskeletal History: DDD CERVICAL. DDD LUMBAR. 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 Neurological History: Reports: Headaches, Chronic Psychiatric History: Reports: Anxiety, Depression, Other (See Below) Other Psychiatric History: CLAUSTROPHOBIA Endocrine/Metabolic History: Reports: Diabetes, Type II Hematologic History: Reports: Anemia, Other (See Below) Other Hematologic History: ELEVATED LIVER ENZYMES Immunologic History: Reports: None Oncologic (Cancer) History: Reports: None Dermatologic History: Reports: None - Infectious Disease History Infectious Disease History: Reports: Chicken Pox, Novel Coronavirus Other Infectious Disease History: cOVID 19 10/2020 - Past Surgical History Head Surgeries/Procedures: Reports: None HEENT Surgical History: Reports: Tonsillectomy Cardiovascular Surgical History: Reports: None Respiratory Surgical History: Reports: None GI Surgical History: Reports: Colonoscopy, EGD Male Surgical History: Reports: Other (See Below) Other Male Surgeries/Procedures: enlarge prostate Endocrine Surgical History: Reports: None Neurological Surgical History: Reports: None Musculoskeletal Surgical History: Reports: Arthroscopic Knee Other Musculoskeletal Surgeries/Procedures:: BILATERAL MENISCUS REPAIR Oncologic Surgical History: Reports: None Social & Family History - Family History Family Medical History: No Pertinent Family History - Tobacco Use Tobacco Use Status *Q: Never Tobacco User - Caffeine Use Caffeine Use: Reports: None Other Caffeine Use: 1 CUP COFFEE DAILY. 1 SODA DAILY Caffeine Use Comment: 1-2 cups daily - Recreational Drug Use Recreational Drug Use: No - Living Situation & Occupation Living situation: Reports: , with Spouse ED ROS GENERAL - Review of Systems Review Of Systems: Comprehensive ROS is negative, except as noted in HPI. ED EXAM, GI/ABD - Physical Exam Exam: See Below Exam Limited By: No Limitations General Appearance: Alert, No Apparent Distress, Obese Throat/Mouth: Normal Inspection, Normal Oropharynx, Normal Voice, No Airway Compromise Respiratory/Chest: No Respiratory Distress, Lungs Clear, Normal Breath Sounds, No Accessory Muscle Use, Chest Non-Tender Cardiovascular: Normal Peripheral Pulses, Regular Rate, Rhythm, No Edema, No Gallop, No JVD, No Murmur, No Rub GI/Abdominal Exam: Normal Bowel Sounds, Soft, Non-Tender, No Distention, No Abnormal Bruit, No Mass, Pelvis Stable. No: Guarding, Rigid, Rebound (Male) Exam: Deferred Rectal (Males) Exam: Normal Rectal Tone, Hemorrhoids. No: Fecal Impaction, Rectal Fissure, Tenderness Back Exam: Normal Inspection, Full Range of Motion. No: CVA Tenderness (L), CVA Tenderness (R) Extremities: Normal Inspection, Normal Range of Motion, Non-Tender, No Pedal Edema, Normal Capillary Refill Neurological: Alert, Oriented, CN II-XII Intact, Normal Cognition, Normal Gait, No Motor/Sensory Deficits Psychiatric: Normal Affect, Normal Mood Skin Exam: Warm, Dry, Intact, Normal Color, No Rash. No: Ecchymosis, Erythema, Jaundice, Mottled, Pallor, Petechiae #1 Interpretation EKG Date: 03/25/21 Time: 19:44 Rhythm: NSR Rate (Beats/Min): 79 [place]: Normal P-Wave: Present QRS: Normal ST-T: Normal QT: Normal MT/PQ Interval: 0.151 Comparison: No Change EKG Interpretation Comments: NSR; No evidence of acute myocardial ischemia. Course - Vital Signs Last Recorded V/S: Last Vital Signs Temp 97.9 F 03/25/21 19:56 Pulse 83 03/25/21 19:56 Resp 17 03/25/21 19:56 BP 133/77 03/25/21 19:56 Pulse Ox 99 03/25/21 19:56 - Orders/Labs/Meds Labs: Laboratory Tests 03/25/21 03/25/21 03/25/21 Range/Units 19:45 19:45 19:45 WBC 9.1 (5.0-10.0) 10^3/uL RBC 4.50 L (4.6-6.2) 10^6/uL Hgb 11.5 L (14.0-18.0) g/dL Hct 36.9 L (40.0-54.0) % MCV 82.0 (80-100) fL MCH 25.6 L (27.0-34.0) pg MCHC 31.2 L (33.0-35.0) g/dL Plt Count 260 (150-450) 10^3/uL Neut % (Auto) 69.9 (42.2-75.2) % Lymph % (Auto) 15.9 L (20.5-50.1) % [place] % (Auto) 11.3 H (2-8) % Eos % (Auto) 2.2 (1.0-3.0) % Baso % (Auto) 0.7 (0.0-1.0) % PT 10.5 (9.0-12.0) SEC INR 1.0 (0.9-1.2) APTT 22.4 (22.0-34.0) SEC Sodium (136-145) mmol/L Potassium (3.5-5.1) mmol/L Chloride (98-107) mmol/L Carbon Dioxide (21-32) mmol/L Anion Gap (7-13) mEq/L BUN (7-18) mg/dL Creatinine (0.70-1.30) mg/dL Est Cr Clr Drug Dosing mL/min Estimated GFR (MDRD) BUN/Creatinine Ratio (No establ ref range) Glucose (70-99) mg/dL Lactic Acid 0.8 (0.4-2.0) mmol/L Calcium (8.5-10.1) mg/dL Magnesium (1.8-2.4) mg/dL Total Bilirubin (0.2-1.0) mg/dL AST (15-37) U/L ALT (16-63) U/L Alkaline Phosphatase (46-116) U/L Troponin I (0.000-0.056) ng/mL C-Reactive Protein (0.0-0.9) mg/dL Total Protein (6.4-8.2) g/dL Albumin (3.4-5.0) g/dL Globulin Albumin/Globulin Ratio Ethyl Alcohol (0) mg/dL 03/25/21 Range/Units 20:10 WBC (5.0-10.0) 10^3/uL RBC (4.6-6.2) 10^6/uL Hgb (14.0-18.0) g/dL Hct (40.0-54.0) % MCV (80-100) fL MCH (27.0-34.0) pg MCHC (33.0-35.0) g/dL Plt Count (150-450) 10^3/uL Neut % (Auto) (42.2-75.2) % Lymph % (Auto) (20.5-50.1) % [place] % (Auto) (2-8) % Eos % (Auto) (1.0-3.0) % Baso % (Auto) (0.0-1.0) % PT (9.0-12.0) SEC INR (0.9-1.2) APTT (22.0-34.0) SEC Sodium 137 (136-145) mmol/L Potassium 4.1 (3.5-5.1) mmol/L Chloride 100 (98-107) mmol/L Carbon Dioxide 31 (21-32) mmol/L Anion Gap 10.1 (7-13) mEq/L BUN 15 (7-18) mg/dL Creatinine 1.29 (0.70-1.30) mg/dL Est Cr Clr Drug Dosing 68.15 mL/min Estimated GFR (MDRD) 56 BUN/Creatinine Ratio 11.6 (No establ ref range) Glucose 107 H (70-99) mg/dL Lactic Acid (0.4-2.0) mmol/L Calcium 8.6 (8.5-10.1) mg/dL Magnesium 1.9 (1.8-2.4) mg/dL Total Bilirubin 0.6 (0.2-1.0) mg/dL AST 26 (15-37) U/L ALT 37 (16-63) U/L Alkaline Phosphatase 87 (46-116) U/L Troponin I < 0.017 (0.000-0.056) ng/mL C-Reactive Protein < 0.2 (0.0-0.9) mg/dL Total Protein 6.7 (6.4-8.2) g/dL Albumin 3.3 L (3.4-5.0) g/dL Globulin 3.4 Albumin/Globulin Ratio 0.97 Ethyl Alcohol < 3 (0) mg/dL - Re-Assessments/Exams Free Text/Narrative Re-Assessment/Exam: 03/26/21 Labs from office visit today reviewed, hemoglobin this morning was 11. Hemoglobin currently 11.5 via CBC; normocytic hypochromic anemia appreciated. WBC 9.5 with no left shift noted. Kidney function, liver function, and electrolytes appropriate via CMP. Troponin WNL. EKG reveals normal sinus rhythm with no evidence of myocardial ischemia. Given improvement in hemoglobin with stable vital signs no indication for emergent transfer to higher level of care at this time. Findings of examination, lab work, and imaging reviewed with patient and . Patient states he is due for colonoscopy; administrative underwriter encouraged patient to schedule colonoscopy as soon as possible. Patient instructed to follow-up with primary care provider early next week regarding today's visit. Discussed red flag signs and symptoms which would warrant emergent reevaluation. Patient and verbalized understanding and agreement with plan of care. Departure - Departure Time of Disposition: 21:18 Disposition: Home, Self-Care 01 Condition: Good Clinical Impression: Rectal bleeding, External hemorrhoids, Normocytic hypochromic anemia - Discharge Information *PRESCRIPTION DRUG MONITORING PROGRAM REVIEWED*: Not Applicable *COPY OF PRESCRIPTION DRUG MONITORING REPORT IN PATIENT MARIEL: Not Applicable Instructions: Hemorrhoids, [id number], Rectal Bleeding, [id number] Referrals: PCP,None [Primary Care Provider] - Forms: ED Department Discharge Additional Instructions: 1.) Follow up with your primary care provider regarding today's visit, including scheduling overdue colonoscopy. 2.) Drink plenty of water to stay hydrated. 3.) Continue on stool softeners to prevent straining. 4.) Return to the emergency department with any dark tarry stools, coffee ground vomit, or significant bright red blood that lines the toilet bowl. Sepsis Event Note (ED) - Evaluation Sepsis Screening Result: No Definite Risk
== END 2021-03-25 21:30 | disposition home or self-care (01) ==
LOC: DL.ED 18:05
DX: K62.5 Hemorrhage of anus and rectum (principal); K64.4 Residual hemorrhoidal skin tags; D50.9 Iron deficiency anemia, unspecified; I25.10 Atherosclerotic heart disease of native coronary artery without angina pectoris; I10 Essential (primary) hypertension; I25.2 Old myocardial infarction; Z95.5 Presence of coronary angioplasty implant and graft; Z79.02 Long term (current) use of antithrombotics/antiplatelets; Z79.899 Other long term (current) drug therapy; Z88.8 Allergy status to other drugs, medicaments and biological substances; Z86.16 Personal history of COVID-19
CPT/HCPCS: 36415; 80053; 80307; 83605; 83735; 84484; 85025; 85610; 85730; 86140; 93005; 99283-25

== ENCOUNTER 2021-10-28 14:34 | Inpatient (IN) | payer MEDICARE, OTHER ==
[2021-10-28 16:28] LABS: ANION GAP 18.3 mEq/L (7-13); CHLORIDE,CL 98 mmol/L (98-107); SODIUM,NA 137 mmol/L (136-145)
[2021-10-28] MEDS ORDERED: Aspirin 81 MG Tab.Chew PO ONE (16:55)
[2021-10-28 16:56] LABS: CORONAVIRUS COVID-19 NAA POSITIVE (NEGATIVE)
[2021-10-28] MEDS ORDERED: Heparin Sodium 5,000 Units/ML Vial IVPUSH ONE (18:45)
[2021-10-28] MEDS: Heparin Sodium/0.45% NaCl 25,000 UNITS/500 ML BAG IV SCH (19:22)
[2021-10-28] MEDS ORDERED: Codeine/guaiFENesin 10-100 MG/5 ML Syrup 5 ML Cup PO ONE (19:26)
--- NOTE | 2021-10-28 19:31 | EDM.PDOC ---
Scribed by Bella Cruz 10/28/21 1489 for Arun Steel PA ED HPI GENERAL MEDICAL PROBLEM - General Chief Complaint: Respiratory Problem Stated Complaint: WEAK, SHORTNESS OF BREATH / CHEST PAIN 101 TEMP Time Seen by Provider: 10/28/21 16:00 Source of Information: Reports: Patient, RN, RN Notes Reviewed History Limitations: Reports: No Limitations - History of Present Illness INITIAL COMMENTS - FREE TEXT/NARRATIVE: This 61 yo male patient reports to the ED with chest pain and a cough. The patient reports he has been coughing until his chest started to hurt. The patient reports he has had a previous MN with 2 stents placed. After getting out of the hospital for 3 days, the patient began to have increased chest pain again. The patient returned to cardiology and was advised that 1 of his stents had occluded. The patient was advised that the spooler operator automatic reported that they could not open the stent, but that the patient had collateral circulation to the area and did not restent that area. The patient reports after he got out he was feeling good for a small amount of time. Then he noticed increased shortness of breath after walking less than 200 yards. At this time, the patient does not think he can walk more than 40 feet without being tired. The patient reports no pain while at rest at this time. Onset: Gradual Duration: Day(s):, Constant, Getting Worse Location: Reports: Chest Quality: Reports: Ache, Sharp Severity: Severe Improves with: Reports: None Worsens with: Reports: None Context: Reports: Other Associated Symptoms: Reports: No Other Symptoms - Related Data Allergies Allergy/AdvReac Type Severity Reaction Status Date / Time methylprednisolone AdvReac high blood Verified 10/28/21 16:04 sugars Home Meds: Home Meds Pantoprazole [ProTONIX] 40 mg PO DAILY 12/15/14 [History] oxyCODONE 10 mg PO Q6HR PRN 12/15/14 [History] LORazepam [Lorazepam] 1 mg PO BID PRN 10/02/20 [History] Lisinopril/Hydrochlorothiazide [Lisinopril-HCTZ 10-12.5 MG] 1 tab PO DAILY 01/13/21 [History] glipiZIDE [Glucotrol XL] 10 mg PO BIDMEALS 01/13/21 [History] tiZANidine HCl [Tizanidine HCl] 2 mg PO TID PRN 01/13/21 [History] Aspirin [Aspirin EC] 81 mg PO DAILY 01/21/21 [History] Benzonatate [Tessalon Perle] 100 mg PO TID PRN 01/21/21 [History] Clopidogrel Bisulfate [Plavix] 75 mg PO DAILY 01/21/21 [History] Tadalafil [Cialis] 10 mg PO ASDIRECTED PRN 01/21/21 [History] atorvaSTATin Calcium [Lipitor] 40 mg PO DAILY 01/21/21 [History] Metoprolol Tartrate 12.5 mg PO DAILY 10/28/21 [History] Past Medical History HEENT History: Reports: Impaired Vision Other HEENT History: WEARS GLASSES Cardiovascular History: Reports: CAD, Hypertension, MN, Stents Other Cardiovascular History: 3 MN in last 2 months Respiratory History: Reports: Sleep Apnea Gastrointestinal History: Reports: GERD, Hemorrhoids Genitourinary History: Reports: BPH Musculoskeletal History: Reports: Back Pain, Chronic, Neck Pain, Chronic, Other (See Below) Other Musculoskeletal History: DDD CERVICAL. DDD LUMBAR. 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 Neurological History: Reports: Headaches, Chronic Psychiatric History: Reports: Anxiety, Depression, Other (See Below) Other Psychiatric History: CLAUSTROPHOBIA Endocrine/Metabolic History: Reports: Diabetes, Type II Hematologic History: Reports: Anemia, Other (See Below) Other Hematologic History: ELEVATED LIVER ENZYMES Immunologic History: Reports: None Oncologic (Cancer) History: Reports: None Dermatologic History: Reports: None - Infectious Disease History Infectious Disease History: Reports: Chicken Pox, Novel Coronavirus Other Infectious Disease History: cOVID 19 10/2020 - Past Surgical History Head Surgeries/Procedures: Reports: None HEENT Surgical History: Reports: Tonsillectomy Cardiovascular Surgical History: Reports: None Respiratory Surgical History: Reports: None GI Surgical History: Reports: Colonoscopy, EGD Male Surgical History: Reports: Other (See Below) Other Male Surgeries/Procedures: enlarge prostate Endocrine Surgical History: Reports: None Neurological Surgical History: Reports: None Musculoskeletal Surgical History: Reports: Arthroscopic Knee Other Musculoskeletal Surgeries/Procedures:: BILATERAL MENISCUS REPAIR Oncologic Surgical History: Reports: None Social & Family History - Family History Family Medical History: No Pertinent Family History - Caffeine Use Caffeine Use: Reports: None Other Caffeine Use: 1 CUP COFFEE DAILY. 1 SODA DAILY Caffeine Use Comment: 1-2 cups daily - Living Situation & Occupation Living situation: Reports: , with Spouse ED ROS GENERAL - Review of Systems Review Of Systems: Comprehensive ROS is negative, except as noted in HPI. ED EXAM, GENERAL - Physical Exam Exam: See Below Exam Limited By: No Limitations General Appearance: Alert, WD/WN, Moderate Distress, Obese Eye Exam: Bilateral Eye: EOMI, Normal Inspection, PERRL Ears: Normal External Exam, Normal Canal, Hearing Grossly Normal, Normal TMs Nose: Normal Inspection, Normal Mucosa, No Blood Throat/Mouth: Normal Inspection, Normal Lips, Normal Teeth, Normal Gums, Normal Oropharynx, Normal Voice, No Airway Compromise Head: Atraumatic, Normocephalic Neck: Normal Inspection, Supple, Non-Tender, Full Range of Motion Respiratory/Chest: Decreased Breath Sounds, Rhonchi Cardiovascular: Normal Peripheral Pulses, Regular Rate, Rhythm, No Edema, No Gallop, No JVD, No Murmur, No Rub GI/Abdominal: Normal Bowel Sounds, Soft, Non-Tender, No Organomegaly, No Distention, No Abnormal Bruit, No Mass (Male) Exam: Deferred Rectal (Males) Exam: Deferred Back Exam: Normal Inspection, Full Range of Motion, NT Extremities: Normal Inspection, Normal Range of Motion, Non-Tender, Normal Capillary Refill, No Pedal Edema Neurological: Alert, Oriented, CN II-XII Intact, Normal Cognition, Normal Gait, Normal Reflexes, No Motor/Sensory Deficits Psychiatric: Normal Affect, Normal Mood Skin Exam: Warm, Dry, Intact, Normal Color, No Rash Lymphatic: No Adenopathy #1 Interpretation EKG Date: 10/28/21 Time: 16:10 Rhythm: Other (sinus tachycardia) Rate (Beats/Min): 102 [place]: Normal P-Wave: Present QRS: Normal ST-T: Normal QT: Normal Course - Vital Signs Last Recorded V/S: Last Vital Signs Temp 98.6 F 10/28/21 15:35 Pulse 105 H 10/28/21 15:35 Resp 28 H 10/28/21 15:35 BP 150/74 H 10/28/21 15:35 Pulse Ox 96 10/28/21 15:35 - Orders/Labs/Meds Orders: Active Orders 24 hr Category Date Time Status Chest 1V Frontal [CR] Urgent Exams 10/28/21 18:48 Ordered CULTURE BLOOD [BC] Stat Lab 10/28/21 15:55 Received LACTIC ACID [CHEM] Routine Lab 10/28/21 18:38 Ordered Heparin Sodium/0.45% NaCl [Heparin 25,000 Units in 1/2 Med 10/28/21 18:45 Ordered NS 500 ML] 25,000 units in 500 ml IV TITRATE Medication Orders Heparin Sodium/Sodium Chloride (Heparin 25,000 Units In 1/2 Ns 500 Ml) 25,000 units in 500 mls @ 37.557 mls/hr IV TITRATE ALMA; Protocol Labs: Laboratory Tests 10/28/21 10/28/21 10/28/21 Range/Units 15:55 15:55 15:55 WBC 11.3 H (5.0-10.0) 10^3/uL RBC 5.90 (4.6-6.2) 10^6/uL Hgb 10.9 L (14.0-18.0) g/dL Hct 38.4 L (40.0-54.0) % MCV 65.1 L D (80-100) fL MCH 18.5 L (27.0-34.0) pg MCHC 28.4 L (33.0-35.0) g/dL Plt Count 332 (150-450) 10^3/uL Neut % (Auto) 70.4 (42.2-75.2) % Lymph % (Auto) 16.5 L (20.5-50.1) % [place] % (Auto) 11.3 H (2-8) % Eos % (Auto) 1.4 (1.0-3.0) % Baso % (Auto) 0.4 (0.0-1.0) % PT (9.0-12.0) SEC INR (0.9-1.2) D-Dimer, Quantitative (0-400) ng/mL Sodium 137 (136-145) mmol/L Potassium 4.3 (3.5-5.1) mmol/L Chloride 98 (98-107) mmol/L Carbon Dioxide 25 (21-32) mmol/L Anion Gap 18.3 H (7-13) mEq/L BUN 13 (7-18) mg/dL Creatinine 1.17 (0.70-1.30) mg/dL Est Cr Clr Drug Dosing 75.14 mL/min Estimated GFR (MDRD) > 60 BUN/Creatinine Ratio 11.1 (No establ ref range) Glucose 231 H (70-99) mg/dL Lactic Acid 2.4 H* (0.4-2.0) mmol/L Calcium 8.7 (8.5-10.1) mg/dL Total Bilirubin 0.7 (0.2-1.0) mg/dL AST 24 (15-37) U/L ALT 34 (16-63) U/L Alkaline Phosphatase 117 H (46-116) U/L Troponin I High Sens 259 H* (<=76) pg/mL Total Protein 7.4 (6.4-8.2) g/dL Albumin 3.4 (3.4-5.0) g/dL Globulin 4.0 Albumin/Globulin Ratio 0.9 Influenza Type A RNA (NEGATIVE) Influenza Type B RNA (NEGATIVE) SARS-CoV-2 RNA ([facility]) (NEGATIVE) 10/28/21 10/28/21 10/28/21 Range/Units 15:55 15:58 17:15 WBC (5.0-10.0) 10^3/uL RBC (4.6-6.2) 10^6/uL Hgb (14.0-18.0) g/dL Hct (40.0-54.0) % MCV (80-100) fL MCH (27.0-34.0) pg MCHC (33.0-35.0) g/dL Plt Count (150-450) 10^3/uL Neut % (Auto) (42.2-75.2) % Lymph % (Auto) (20.5-50.1) % [place] % (Auto) (2-8) % Eos % (Auto) (1.0-3.0) % Baso % (Auto) (0.0-1.0) % PT 10.6 (9.0-12.0) SEC INR 1.1 (0.9-1.2) D-Dimer, Quantitative 1760 H (0-400) ng/mL Sodium (136-145) mmol/L Potassium (3.5-5.1) mmol/L Chloride (98-107) mmol/L Carbon Dioxide (21-32) mmol/L Anion Gap (7-13) mEq/L BUN (7-18) mg/dL Creatinine (0.70-1.30) mg/dL Est Cr Clr Drug Dosing mL/min Estimated GFR (MDRD) BUN/Creatinine Ratio (No establ ref range) Glucose (70-99) mg/dL Lactic Acid (0.4-2.0) mmol/L Calcium (8.5-10.1) mg/dL Total Bilirubin (0.2-1.0) mg/dL AST (15-37) U/L ALT (16-63) U/L Alkaline Phosphatase (46-116) U/L Troponin I High Sens 241 H* (<=76) pg/mL Total Protein (6.4-8.2) g/dL Albumin (3.4-5.0) g/dL Globulin Albumin/Globulin Ratio Influenza Type A RNA Negative (NEGATIVE) Influenza Type B RNA Negative (NEGATIVE) SARS-CoV-2 RNA ([facility]) Positive H (NEGATIVE) Meds: Medications Generic Name Dose Route Start Last Admin Trade Name Freq PRN Reason Stop Dose Admin Heparin Sodium/Sodium Chloride 25,000 units in 500 mls @ 37.557 mls/hr 10/28/21 18:45 Heparin 25,000 Units In 1/2 Ns 500 Ml IV TITRATE ALMA Protocol 12 UNITS/KG/HR Discontinued Medications Generic Name Dose Route Start Last Admin Trade Name Freq PRN Reason Stop Dose Admin Aspirin 324 mg 10/28/21 16:55 10/28/21 17:04 Aspirin 81 Mg Tab.Chew PO 10/28/21 16:56 324 mg ONETIME ONE Administration Heparin Sodium (Porcine) 4,000 units 10/28/21 18:45 Heparin Sodium 5,000 Units/Ml Vial IVPUSH 10/28/21 18:46 .BOLUS ONE - Re-Assessments/Exams Free Text/Narrative Re-Assessment/Exam: 10/28/21 18:[address] Solano (Road Repairer with [facility] in [place]). Dr. Solano advised to start the patient on heparin and repeat the troponin in the morning. Departure - Departure Time of Disposition: 19:27 Disposition: Admitted As Inpatient 64 Condition: Fair Clinical Impression: Elevated troponin I level, COVID, Cough Chest pain Qualifiers: Chest pain type: other chest pain Qualified Code(s): R07.89 - Other chest pain; R07.8 - Other chest pain - Discharge Information *PRESCRIPTION DRUG MONITORING PROGRAM REVIEWED*: Not Applicable *COPY OF PRESCRIPTION DRUG MONITORING REPORT IN PATIENT MARIEL: Not Applicable Forms: ED Department Discharge Care Plan Goals: Discussed the patient's history, examination, lab results, x-ray results and repeat lab results with Dr. Moreno. Dr. Moreno accepted the patient for admission to our facility under the recommendations of Dr. Solano (Road Repairer with [facility] in [place]). Sepsis Event Note (ED) - Focused Exam Vital Signs: Vital Signs Temp Pulse Resp BP Pulse Ox 10/28/21 15:35 98.6 F 105 H 28 H 150/74 H 96 - My Orders Last 24 Hours: My Active Orders 10/28/21 15:55 CULTURE BLOOD [BC] Stat 10/28/21 18:38 LACTIC ACID [CHEM] Routine 10/28/21 18:45 Heparin Sodium/0.45% NaCl [Heparin 25,000 Units in 1/2 NS 500 ML] 25,000 units in 500 ml IV TITRATE 10/28/21 18:48 Chest 1V Frontal [CR] Urgent - Assessment/Plan Last 24 Hours: My Active Orders 10/28/21 15:55 CULTURE BLOOD [BC] Stat 10/28/21 18:38 LACTIC ACID [CHEM] Routine 10/28/21 18:45 Heparin Sodium/0.45% NaCl [Heparin 25,000 Units in 1/2 NS 500 ML] 25,000 units in 500 ml IV TITRATE 10/28/21 18:48 Chest 1V Frontal [CR] Urgent I have read and agree with the documentation that has been completed regarding this visit. By signing this record, I attest that the documentation was completed in my physical presence and is an accurate record of the encounter.
--- NOTE | 2021-10-28 19:53 | CR ---
PROCEDURE INFORMATION: Exam: XR Chest Exam date and time: 10/28/2021 6:56 PM Age: 61 years old Clinical indication: Other: Covid+; Additional info: Chest pain with shortness of breath TECHNIQUE: Imaging protocol: XR of the chest. Views: 1 view. COMPARISON: CR Chest 1V Frontal 03/05/2021 5:39 PM FINDINGS: Lungs: Nonspecific hyperinflation suggesting COPD or air trapping related to an upper respiratory infection. No peripheral infiltrates. Minor linear atelectasis versus scarring at the left lung base. Pleural spaces: No pleural effusion. Heart/Mediastinum: Normal heart size. Bones/joints: Unremarkable. IMPRESSION: 1. No acute infiltrates evident. 2. Hyperinflation suggesting emphysema or air trapping related to an upper respiratory infection or reactive airway disease.
--- NOTE | 2021-10-28 20:48 | PCM.HP ---
H&P History of Present Illness - General Date of Service: 10/28/21 Admit Problem/Dx: Admission Diagnosis/Problem Admission Diagnosis/Problem Chest pain Source of Information: Patient, Old Records - History of Present Illness Initial Comments - Free Text/Narative: Quique Brantley [id number] Jehovah's Witnessmalewith a medical history of hypertension, CAD status post recent stent on 01/14/2021, type 2 diabetes mellitus, chronic pain syndrome who was admitted again on 01/21 after Discharge on 01/14/21 with chest pressure and elevated troponindue to NSTEMI.Patient hadnot takenhis dual antiplatelet therapy for the first 2 days due to fear ofworseningrectal bleeding. He was evaluated by cardiology and taken to the [facility] for angiogram again on 01/22/21 which revealed acute stent thrombosis of recently placed ramusstent and patent RCA stent. Attempted PCI of the occluded stent was unsuccessful and D/C on 01/23.with recommendation of dual antiplatelet therapy for 1 year or longer. He was again admitted on 01/28/2021 and discharged on the same date and the admission was for again with chest pain and started on heparin drip troponins started to come down and he was discharged back home. He was admitted again on 02/05/2021 this time with a GI bleed and he had: Colonic preparation for colonoscopy but at the Patient decided to defer endoscopy and colonoscopy until he had completed dual antiplatelet therapy. He is being discharged follow-up with PCP. GIO to schedule endoscopy and colonoscopy for the future. He tested positive for COVID-19 2019 and second time November 13, 2020 both these tests were done at [facility], he tested positive again for COVID-19 on 10/28/2021 at [facility]. Today ( 10/28) he presented to ED with chest pain and a cough. The patient reports he has been coughing until his chest started to hurt,and also he noticed increased shortness of breath after walking less than 200 yards. At this time, the patient does not think he can walk more than 40 feet without being tired. ER talk to Cardiology air intercept controller ( DR. Solano) and he could no accept him because of bed situation but if troponin keeps increasing then will send him to [place], Will continue him on heparin drip and check serial cardiac markers. Troponin 259 at 15:59 and Troponin 249 at 19:59 and will keep checking troponin q6 hrs Onset of Symptoms: Reports: Sudden Duration of Symptoms: Reports: Getting Worse Location: Reports: Chest Improves with: Reports: Rest Worsens with: Reports: Movement Associated Symptoms: Reports: Chest Pain - Related Data Allergies/Adverse Reactions: Allergies Allergy/AdvReac Type Severity Reaction Status Date / Time No Known Allergies Allergy Verified 10/28/21 21:11 Home Medications: Home Meds Pantoprazole [ProTONIX] 40 mg PO DAILY 12/15/14 [History] oxyCODONE 10 mg PO Q6HR PRN 12/15/14 [History] LORazepam [Lorazepam] 1 mg PO BID PRN 10/02/20 [History] Lisinopril/Hydrochlorothiazide [Lisinopril-HCTZ 10-12.5 MG] 1 tab PO DAILY 01/13/21 [History] glipiZIDE [Glucotrol XL] 10 mg PO BIDMEALS 01/13/21 [History] tiZANidine HCl [Tizanidine HCl] 2 mg PO TID PRN 01/13/21 [History] Aspirin [Aspirin EC] 81 mg PO DAILY 01/21/21 [History] Benzonatate [Tessalon Perle] 100 mg PO TID PRN 01/21/21 [History] Clopidogrel Bisulfate [Plavix] 75 mg PO DAILY 01/21/21 [History] Tadalafil [Cialis] 10 mg PO ASDIRECTED PRN 01/21/21 [History] atorvaSTATin Calcium [Lipitor] 40 mg PO DAILY 01/21/21 [History] Metoprolol Tartrate 12.5 mg PO DAILY 10/28/21 [History] Past Medical History HEENT History: Reports: Impaired Vision Other HEENT History: WEARS GLASSES Cardiovascular History: Reports: CAD, High Cholesterol, Hypertension, MA, PTCA, SOB on Exertion, Stents Other Cardiovascular History: 3 MA in last 2 months Respiratory History: Reports: Sleep Apnea, Other (See Below) Other Respiratory History: Chronic lung issues since COVID infection in Oct 2020 Gastrointestinal History: Reports: GERD, Hemorrhoids Genitourinary History: Reports: BPH Musculoskeletal History: Reports: Back Pain, Chronic, Neck Pain, Chronic, Other (See Below) Other Musculoskeletal History: DDD CERVICAL. DDD LUMBAR. 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 Neurological History: Reports: Headaches, Chronic Psychiatric History: Reports: Anxiety, Depression, Other (See Below) Other Psychiatric History: CLAUSTROPHOBIA Endocrine/Metabolic History: Reports: Diabetes, Type II Hematologic History: Reports: Anemia, Other (See Below) Other Hematologic History: ELEVATED LIVER ENZYMES Immunologic History: Reports: None Oncologic (Cancer) History: Reports: None Dermatologic History: Reports: None - Infectious Disease History Infectious Disease History: Reports: Chicken Pox, Novel Coronavirus Other Infectious Disease History: cOVID 19 10/2020 - Past Surgical History Head Surgeries/Procedures: Reports: None HEENT Surgical History: Reports: Tonsillectomy Cardiovascular Surgical History: Reports: Coronary Artery Stent Respiratory Surgical History: Reports: None GI Surgical History: Reports: Colonoscopy, EGD Male Surgical History: Reports: Other (See Below) Other Male Surgeries/Procedures: enlarge prostate Endocrine Surgical History: Reports: None Neurological Surgical History: Reports: None Musculoskeletal Surgical History: Reports: Arthroscopic Knee Other Musculoskeletal Surgeries/Procedures:: BILATERAL MENISCUS REPAIR Oncologic Surgical History: Reports: None Social & Family History - Family History Family Medical History: No Pertinent Family History - Tobacco Use Tobacco Use Status *Q: Never Tobacco User - Caffeine Use Caffeine Use: Reports: Coffee Other Caffeine Use: 1 CUP COFFEE DAILY. 1 SODA DAILY Caffeine Use Comment: 1-2 cups daily - Recreational Drug Use Recreational Drug Use: No - Living Situation & Occupation Living situation: Reports: , with Spouse H&P Review of Systems - Review of Systems: Review Of Systems: See Below General: Reports: Weakness. Denies: Fever, Chills HEENT: Denies: Dysphasia, Sinus Congestion, Visual Changes Pulmonary: Denies: Shortness of Breath, Wheezing, Sputum Cardiovascular: Reports: Chest Pain, Dyspnea on Exertion. Denies: Edema, Lightheadedness Gastrointestinal: Denies: Abdominal Pain, Diarrhea, Distension, Melena Genitourinary: Denies: Dysuria, Burning, Urgency Musculoskeletal: Denies: Neck Pain, Leg Pain, Joint Pain Skin: Denies: Cyanosis, Jaundice, Bruising, Pruritis, Rash Psychiatric: Denies: Confusion Neurological: Denies: Confusion, Numbness, Tremors Exam - Exam Exam: See Below - Vital Signs Vital Signs: Last Vital Signs Temp 37.0 C 10/28/21 15:35 Pulse 105 H 10/28/21 15:35 Resp 28 H 10/28/21 15:35 BP 150/74 H 10/28/21 15:35 Pulse Ox 96 10/28/21 15:35 Weight: 156.489 kg - Exam Quality Assessment: Supplemental Oxygen, DVT Prophylaxis. No: Central Line/PICC, Urinary Catheter General: Alert. No: Oriented HEENT: No: Conjunctiva Clear, EOMI, Mucosa Moist & [place], Pupils Equal Neck: No: Supple, JVD, Thyromegaly Lungs: Clear to Auscultation, Normal Respiratory Effort Cardiovascular: Regular Rate, Regular Rhythm, Normal S1, Normal S2, Systolic Murmur GI/Abdominal Exam: Normal Bowel Sounds, Soft, Non-Tender, No Distention (Male) Exam: Deferred Rectal (Males) Exam: Deferred Back Exam: Normal Inspection Extremities: Normal Inspection, No Pedal Edema Skin: Warm, Dry, Intact Neurological: Cranial Nerves Intact Neuro Extensive - Mental Status: Alert, Oriented x3, Normal Mood/Affect, Normal Cognition, Memory Intact Neuro Extensive - Motor, Sensory, Reflexes: CN II-XII Intact, Normal Gait, Norm al Reflexes Psychiatric: Alert, Normal Affect, Normal Mood - Patient Data Lab Results Last 24 hrs: Laboratory Results - last 24 hr 10/28/21 10/28/21 10/28/21 Range/Units 15:55 15:55 15:55 WBC 11.3 H (5.0-10.0) 10^3/uL RBC 5.90 (4.6-6.2) 10^6/uL Hgb 10.9 L (14.0-18.0) g/dL Hct 38.4 L (40.0-54.0) % MCV 65.1 L D (80-100) fL MCH 18.5 L (27.0-34.0) pg MCHC 28.4 L (33.0-35.0) g/dL Plt Count 332 (150-450) 10^3/uL Neut % (Auto) 70.4 (42.2-75.2) % Lymph % (Auto) 16.5 L (20.5-50.1) % [place] % (Auto) 11.3 H (2-8) % Eos % (Auto) 1.4 (1.0-3.0) % Baso % (Auto) 0.4 (0.0-1.0) % PT (9.0-12.0) SEC INR (0.9-1.2) D-Dimer, Quantitative (0-400) ng/mL Sodium 137 (136-145) mmol/L Potassium 4.3 (3.5-5.1) mmol/L Chloride 98 (98-107) mmol/L Carbon Dioxide 25 (21-32) mmol/L Anion Gap 18.3 H (7-13) mEq/L BUN 13 (7-18) mg/dL Creatinine 1.17 (0.70-1.30) mg/dL Est Cr Clr Drug Dosing 75.14 mL/min Estimated GFR (MDRD) > 60 BUN/Creatinine Ratio 11.1 (No establ ref range) Glucose 231 H (70-99) mg/dL Lactic Acid 2.4 H* (0.4-2.0) mmol/L Calcium 8.7 (8.5-10.1) mg/dL Total Bilirubin 0.7 (0.2-1.0) mg/dL AST 24 (15-37) U/L ALT 34 (16-63) U/L Alkaline Phosphatase 117 H (46-116) U/L Troponin I High Sens 259 H* (<=76) pg/mL Total Protein 7.4 (6.4-8.2) g/dL Albumin 3.4 (3.4-5.0) g/dL Globulin 4.0 Albumin/Globulin Ratio 0.9 Influenza Type A RNA (NEGATIVE) Influenza Type B RNA (NEGATIVE) SARS-CoV-2 RNA ([facility]) (NEGATIVE) 10/28/21 10/28/21 10/28/21 Range/Units 15:55 15:58 17:15 WBC (5.0-10.0) 10^3/uL RBC (4.6-6.2) 10^6/uL Hgb (14.0-18.0) g/dL Hct (40.0-54.0) % MCV (80-100) fL MCH (27.0-34.0) pg MCHC (33.0-35.0) g/dL Plt Count (150-450) 10^3/uL Neut % (Auto) (42.2-75.2) % Lymph % (Auto) (20.5-50.1) % [place] % (Auto) (2-8) % Eos % (Auto) (1.0-3.0) % Baso % (Auto) (0.0-1.0) % PT 10.6 (9.0-12.0) SEC INR 1.1 (0.9-1.2) D-Dimer, Quantitative 1760 H (0-400) ng/mL Sodium (136-145) mmol/L Potassium (3.5-5.1) mmol/L Chloride (98-107) mmol/L Carbon Dioxide (21-32) mmol/L Anion Gap (7-13) mEq/L BUN (7-18) mg/dL Creatinine (0.70-1.30) mg/dL Est Cr Clr Drug Dosing mL/min Estimated GFR (MDRD) BUN/Creatinine Ratio (No establ ref range) Glucose (70-99) mg/dL Lactic Acid (0.4-2.0) mmol/L Calcium (8.5-10.1) mg/dL Total Bilirubin (0.2-1.0) mg/dL AST (15-37) U/L ALT (16-63) U/L Alkaline Phosphatase (46-116) U/L Troponin I High Sens 241 H* (<=76) pg/mL Total Protein (6.4-8.2) g/dL Albumin (3.4-5.0) g/dL Globulin Albumin/Globulin Ratio Influenza Type A RNA Negative (NEGATIVE) Influenza Type B RNA Negative (NEGATIVE) SARS-CoV-2 RNA ([facility]) Positive H (NEGATIVE) Result Diagrams: 10/28/21 15:55 10/28/21 15:55 - Problem List (1) COVID SNOMED Code(s): 171048819 ICD Code: U07.1 - COVID-19 Status: Acute Current Visit: Yes (2) Chest pain SNOMED Code(s): 31817551 ICD Code: R07.9 - CHEST PAIN, UNSPECIFIED Status: Acute Current Visit: Yes Qualifiers: Chest pain type: other chest pain Qualified Code(s): R07.89 - Other chest pain; R07.8 - Other chest pain (3) Elevated troponin I level SNOMED Code(s): 763024685 ICD Code: R77.8 - OTHER SPECIFIED ABNORMALITIES OF PLASMA PROTEINS Status: Acute Current Visit: Yes Problem List Initiated/Reviewed/Updated: Yes Orders Last 24hrs: Active Orders 24 hr Category Date Time Status Admission Diagnosis [ADT] Urgent ADT 10/28/21 19:11 Ordered Admission Status [Patient Status] [ADT] Routine ADT 10/28/21 19:11 Active CULTURE BLOOD [BC] Stat Lab 10/28/21 15:55 Received LACTIC ACID [CHEM] Routine Lab 10/28/21 18:38 Ordered Heparin Sodium/0.45% NaCl [Heparin 25,000 Units in 1/2 Med 10/28/21 18:45 Active NS 500 ML] 25,000 units in 500 ml IV TITRATE Medication Orders Heparin Sodium/Sodium Chloride (Heparin 25,000 Units In 1/2 Ns 500 Ml) 25,000 units in 500 mls @ 37.557 mls/hr IV TITRATE ALMA; Protocol Last Admin: 10/28/21 19:22 Dose: 12 units/kg/hr, 37.557 mls/hr Documented by: ANGELA Cosigned by: FILI Assessment/Plan Comment:: Mr. Driscoll is a 61-year-old male,Druze came to ER with chest pain and progressive increase of shortness of breath hand have difficulty with mobility after coming to ER his troponin not checked and it was elevated at 259, reference range for male 75 at [facility], cardiology was contacted at [facility] and recommended admitting the patient and start heparin drip and if the troponin continues to have upward trend then he will be transferred to [facility] tomorrow for possible cardiac intervention. After coming to ER he was again tested for COVID-19 and it was positive and his influenza A and B are negative. Impression and plan: 1. Chest pain: Patient recently had chest pain and evaluated at [facility] he had coronary angiogram on 01/14/2021 with 2 stent placed but after 3 days he went back again did not take his dual antiplatelet therapy as recommended and he had again another angiogram and it showed in-stent occlusion but could not open up and recommended to continue taking dual antiplatelet therapy for 1 full year. Today in the ER his troponin was 259, reference is 75, cardiology was contacted and recommended that to admit the patient start on heparin drip and if troponin keep going up then he needs to be transported back to [place] for further intervention. We will check his troponin every 6 hours and will start him on a heparin drip. 2. COVID-19 infection: Patient has shortness of breath and for that reason he had again COVID-19 tested in ER and it was positive again, will start him on dexamethasone 6 mg IV daily and also start him on antibiotics Zosyn and c eftriaxone. 3. Diabetes 2 [id number]: He is on glipizide and will continue him with that medication but will not give him regular diet today keep him on clear liquid with the thought if there is any need for doing angiogram or if that troponin keeps going up then we will have to send him back to [facility] to for angiogram. 4. Hypertension: His blood pressure is acceptable and we will continue him with lisinopril hydrochlorothiazide combination medication 08/10.5, take 1 tablet daily and metoprolol at 12.5 mg daily. 5. Dyslipidemia: We will continue him with atorvastatin 40 mg daily. GI prophylaxis: We will continue him with Pantoprazole at 40 mg daily. DVT prophylaxis: Will be started on heparin drip for elevated troponin. CODE STATUS discussed with patient about the CODE STATUS and he wishes to be full code.
[2021-10-28] MEDS ORDERED: Acetaminophen 325 MG Tab PO PRN (21:20)
[2021-10-28] MEDS ORDERED: Docusate Sodium 100 MG Cap PO PRN (21:20)
[2021-10-28] MEDS ORDERED: Benzonatate 100 MG Cap PO PRN (21:35)
[2021-10-28] MEDS ORDERED: TIZANIDINE HCL 2 MG PO PRN (21:35)
[2021-10-28] MEDS ORDERED: 50% Dextrose in Water 50 ML Syringe IVPUSH PRN (21:38)
[2021-10-28] MEDS ORDERED: Glucagon,Human Recombinant 1 MG Vial IM PRN (21:38)
[2021-10-28] MEDS ORDERED: Piperacillin/Tazobactam 3.375 GM in Sodium Chloride 0.9% 100 ML IV SCH (21:45)
[2021-10-28] MEDS ORDERED: cefTRIAXone 1 GM in Sodium Chloride 0.9% 50 ML IV SCH (22:00)
[2021-10-28] MEDS: oxyCODONE 5 MG Tab PO PRN (22:20)
[2021-10-28] MEDS: LORazepam 1 MG Tab PO PRN (22:24)
[2021-10-28] MEDS: Piperacillin/Tazobactam 3.375 GM in Sodium Chloride 0.9% 100 ML IV SCH (23:00)
[2021-10-29] MEDS ORDERED: Heparin Sodium 5,000 Units/ML Vial IVPUSH ONE (03:04)
[2021-10-29] MEDS: Piperacillin/Tazobactam 3.375 GM in Sodium Chloride 0.9% 100 ML IV SCH ×3 (03:41→16:11)
[2021-10-29] MEDS ORDERED: Aluminum Hydroxide/Magnesium Hydroxide/Simethicone Susp 30 ML Cup PO PRN (03:51)
[2021-10-29] MEDS: oxyCODONE 5 MG Tab PO PRN ×2 (04:08→13:50)
[2021-10-29] MEDS ORDERED: glipiZIDE 5 MG Tab.ER PO SCH (08:00)
[2021-10-29] MEDS: Heparin Sodium/0.45% NaCl 25,000 UNITS/500 ML BAG IV SCH (08:40)
[2021-10-29] MEDS ORDERED: Aspirin 81 MG Tab.EC PO SCH (09:00)
[2021-10-29] MEDS ORDERED: Metoprolol Tartrate 25 MG Tab PO SCH (09:00)
[2021-10-29] MEDS ORDERED: atorvaSTATin 20 MG Tab PO SCH (09:00)
[2021-10-29] MEDS ORDERED: Hydrochlorothiazide 25 MG Tab PO SCH (09:00)
[2021-10-29] MEDS ORDERED: Dexamethasone 4 MG/ML SDV IVPUSH SCH (09:00)
[2021-10-29] MEDS ORDERED: Lisinopril 10 MG Tab PO SCH (09:00)
[2021-10-29] MEDS ORDERED: Pantoprazole 40 MG Tab.CR PO SCH (09:00)
[2021-10-29] MEDS ORDERED: Clopidogrel 75 MG Tab PO SCH (09:00)
[2021-10-29] MEDS: Insulin Lispro 100 Units/ML 3 ML Vial SUBCUT SCH ×2 (09:15→12:13)
[2021-10-29 09:24] LABS: ANION GAP 15.2 mEq/L (7-13)
--- NOTE | 2021-10-29 11:35 | PCM.DCSUM1 ---
Discharge Summary - Hospital Course Free Text/Narrative:: Quique Brantley [id number] Jehovah's Witnessmalewith a medical history of hypertension, CAD status post recent stent on 01/14/2021, type 2 diabetes mellitus, chronic pain syndrome who was admitted again on 01/21 after Discharge on 01/14/21 with chest pressure and elevated troponindue to NSTEMI.Patient hadnot takenhis dual antiplatelet therapy for the first 2 days due to fear ofworseningrectal bleeding. He was evaluated by cardiology and taken to the [facility] for angiogram again on 01/22/21 which revealed acute stent thrombosis of recently placed ramusstent and patent RCA stent. Attempted PCI of the occluded stent was unsuccessful and D/C on 01/23.with recommendation of dual antiplatelet therapy for 1 year or longer. He was again admitted on 01/28/2021 and discharged on the same date and the admission was for again with chest pain and started on heparin drip troponins started to come down and he was discharged back home. He was admitted again on 02/05/2021 this time with a GI bleed and he had: Colonic preparation for colonoscopy but at the Patient decided to defer endoscopy and colonoscopy until he had completed dual antiplatelet therapy. He is being discharged follow-up with PCP. GIO to schedule endoscopy and colonoscopy for the future. He tested positive for COVID-19 2019 and second time November 13, 2020 both these tests were done at [facility], he tested positive again for COVID-19 on 10/28/2021 at [facility]. On ( 10/28) he presented to ED with chest pain and a cough. The patient reports he has been coughing until his chest started to hurt,and also he noticed increased shortness of breath after walking less than 200 yards. At this time, the patient does not think he can walk more than 40 feet without being tired. ER talk to Cardiology publicity consultant ( DR. Solano) and he could no accept him because of bed situation but if troponin keeps increasing then will send him to [facility] tomorrow ( 10/29) ,and continued him on heparin drip and checked serial cardiac markers. Troponin 259 at 15:59 and Troponin 249 at 19:59 and his last Troponin 121 at 8:00 AM on 10/29/21 and his D- also came dow3n from 1760 to 1530. Since his troponin is already improving he will not need to go to [facility] to have any interventional procedure done. He has appointment with Dr. Montero of cardiology next week for further evaluation, he is advised to follow with cardiology next week without any miss. He is also advised to follow-up with his primary in a week. He will go home on dexamethasone 6 mg daily to complete 10 days course and also he will take antibiotics Cefpodoxime 200 mg twice a day for another 7 days. He was evaluated by respiratory therapist and his oxygen saturation without any supplemental oxygen is above 90% and he will not need any supplemental oxygen to go home. - Discharge Data Discharge Date: 10/29/21 Discharge Disposition: Home, Self-Care 01 Condition: Good - Referral to Home Health Primary Care Physician: PCP None - Discharge Diagnosis/Problem(s) (1) COVID SNOMED Code(s): 273959323 ICD Code: U07.1 - COVID-19 Status: Acute Current Visit: Yes (2) Chest pain SNOMED Code(s): 00635753 ICD Code: R07.9 - CHEST PAIN, UNSPECIFIED Status: Acute Current Visit: Yes Qualifiers: Chest pain type: other chest pain Qualified Code(s): R07.89 - Other chest pain; R07.8 - Other chest pain (3) Elevated troponin I level SNOMED Code(s): 974858644 ICD Code: R77.8 - OTHER SPECIFIED ABNORMALITIES OF PLASMA PROTEINS Status: Acute Current Visit: Yes - Patient Instructions Diet: Heart Healthy Diet Activity: As Tolerated Showering/Bathing: May Shower Notify Provider of: Fever, Nausea and/or Vomiting Other/Special Instructions: Patient came with chest pain and also shortness of breath, his troponin was elevated and his Covid was positive. His home health clinician recommended to admit him and start him on heparin drip, and trend the troponin, if troponin goes up then he needs to go back to [facility]. His troponin did not go up anymore and it trended down decided that he will not need to go back to [facility] for further intervention. For his Covid he will go home on d examethasone 6 mg daily for 8 days course and antibiotic support dog same Cefpodoxime 200 mg twice a day for 7 days course. He is advised to follow with his PMD in a week time. - Discharge Plan *PRESCRIPTION DRUG MONITORING PROGRAM REVIEWED*: Not Applicable *COPY OF PRESCRIPTION DRUG MONITORING REPORT IN PATIENT MARIEL: Not Applicable Prescriptions/Med Rec: dexAMETHasone [Dexamethasone] 6 mg PO DAILY 8 Days #16 tablet Cefpodoxime [Vantin] 200 mg PO BID 7 Days #14 tablet Home Medications: Home Meds Pantoprazole [ProTONIX] 40 mg PO DAILY 12/15/14 [History] oxyCODONE 10 mg PO Q6HR PRN 12/15/14 [History] LORazepam [Lorazepam] 1 mg PO BID PRN 10/02/20 [History] Lisinopril/Hydrochlorothiazide [Lisinopril-HCTZ 10-12.5 MG] 1 tab PO DAILY 01/13/21 [History] glipiZIDE [Glucotrol XL] 10 mg PO BIDMEALS 01/13/21 [History] tiZANidine HCl [Tizanidine HCl] 2 mg PO TID PRN 01/13/21 [History] Aspirin [Aspirin EC] 81 mg PO DAILY 01/21/21 [History] Benzonatate [Tessalon Perle] 100 mg PO TID PRN 01/21/21 [History] Clopidogrel Bisulfate [Plavix] 75 mg PO DAILY 01/21/21 [History] Tadalafil [Cialis] 10 mg PO ASDIRECTED PRN 01/21/21 [History] atorvaSTATin Calcium [Lipitor] 40 mg PO DAILY 01/21/21 [History] Metoprolol Tartrate 12.5 mg PO DAILY 10/28/21 [History] Cefpodoxime [Vantin] 200 mg PO BID 7 Days #14 tablet 10/29/21 [Rx] dexAMETHasone [Dexamethasone] 6 mg PO DAILY 8 Days #16 tablet 10/29/21 [Rx] Oxygen Therapy Mode: Room Air Patient Handouts: COVID-19 Frequently Asked Questions, How to Protect Yourself and Others - [facility] (06/11/2021), 10 Things You Can Do to Manage Your COVID-19 Symptoms at Home - [facility] (05/14/2021), Nonspecific Chest Pain, Adult, [id number], Infection Prevention in the Home Referrals: PCP,None [Primary Care Provider] - - Discharge Summary/Plan Comment DC Time >30 min.: Yes Total # of Minutes for Discharge Time: Total time I spent today in discharging this patient is greater than 30 minutes. Discharge Summary/Plan Comment: Mr. Driscoll is a 61-year-old male,Taoism came to ER with chest pain and progressive increase of shortness of breath hand have difficulty with mo bility after coming to ER his troponin not checked and it was elevated at 259, reference range for male [address] [facility], [facility] and recommended admitting the patient and start heparin drip and if the troponin continues to have upward trend then he will be transferred to [facility] tomorrow for possible cardiac intervention. After coming to ER he was again tested for COVID-19 and it was positive and his influenza A and B are negative. Impression and plan: 1. Chest pain: Patient recently had chest pain and evaluated at [facility], he had coronary angiogram on 01/14/2021 with 2 stent placed but after 3 days he went back again with chest pain,, but he did not take his dual antiplatelet therapy as recommended and he had again another angiogram and it showed in-stent occlusion but could not open up and recommended to continue taking dual antiplatelet therapy for 1 full year. He came to ER on 10/28/21 his troponin was 259, (reference is 75), cardiology at [facility] was contacted by ER physician, and recommended to admit the patient and start on heparin drip and if troponin keep going up then [facility]. -checked his troponin every 6 hours and continued him on a heparin drip and his troponin was progressively showing a downward trend and there is no need for him to go back to [facility] for further evaluation. He has appointment with Dr. Montero next week and he will follow up with him. 2. COVID-19 infection: Patient has shortness of breath and for that reason he had again COVID-19 tested in ER and it was positive again, He will go home on dexamethasone 6 mg p.o. daily for another 8 days. Also he will take antibiotics cefpodoxime 200 mg 2 times a day for another 7 days. 3. Diabetes 2 [id number]: He is on glipizide and will continue him with that medication but will not give him regular diet today keep him on clear liquid with the thought if there is any need for doing angiogram or if that troponin keeps going up then we will have to send him back to [facility] for [facility]ogram. 4. Hypertension: His blood pressure is acceptable and we will continue him with lisinopril hydrochlorothiazide combination medication 08/10., take 1 tablet daily and metoprolol at 12.5 mg daily. 5. Dyslipidemia: We will continue him with atorvastatin 40 mg daily. GI prophylaxis: We will continue him with Pantoprazole at 40 mg daily. DVT prophylaxis: Will be started on heparin drip for elevated troponin. CODE STATUS discussed with patient about the CODE STATUS and he wishes to be full code. He is advised to follow with the PMD in a week after the discharge. This dictation is done via [employer] dictation system. - General Info Date of Service: 10/29/21 Admission Dx/Problem (Free Text: Admission Diagnosis/Problem Admission Diagnosis/Problem Chest pain and positive COVID-19 Functional Status: Reports: Pain Controlled, Tolerating Diet, Ambulating, Urinating - Review of Systems General: Reports: Weakness, Appetite (good). Denies: Fever, Chills HEENT: Denies: Headaches, Sinus Congestion, Sore Throat, Visual Changes Pulmonary: Reports: Shortness of Breath. Denies: Cough, Sputum, Wheezing Cardiovascular: Reports: Chest Pain (not cardiac related). Denies: Edema, Lightheadedness Gastrointestinal: Denies: Constipation, Diarrhea, Nausea, Vomiting Genitourinary: Denies: Dysuria, Burning, Urgency, Flank Pain Musculoskeletal: Denies: Neck Pain, Leg Pain, Foot Pain, Joint Pain Skin: Denies: Cyanosis, Jaundice, Bruising, Pruritis, Rash Neurological: Denies: Confusion, Numbness, Tremors Psychiatric: Denies: Confusion, Anxiety - Patient Data Vitals - Most Recent: Last Vital Signs Temp 36.7 C 10/29/21 04:00 Pulse 72 10/29/21 09:22 Resp 15 10/29/21 04:00 BP 134/88 10/29/21 09:22 Pulse Ox 93 L 10/29/21 04:00 Weight - Most Recent: 151.953 kg I&O - Last 24 hours: Intake & Output 10/28/21 10/29/21 10/29/21 22:59 06:59 14:59 Intake Total 250 400 Output Total 500 Balance 250 -100 Lab Results - Last 24 hrs: Laboratory Results - last 24 hr 10/28/21 10/28/21 10/28/21 Range/Units 15:55 15:55 15:55 WBC 11.3 H (5.0-10.0) 10^3/uL RBC 5.90 (4.6-6.2) 10^6/uL Hgb 10.9 L (14.0-18.0) g/dL Hct 38.4 L (40.0-54.0) % MCV 65.1 L D (80-100) fL MCH 18.5 L (27.0-34.0) pg MCHC 28.4 L (33.0-35.0) g/dL Plt Count 332 (150-450) 10^3/uL Neut % (Auto) 70.4 (42.2-75.2) % Lymph % (Auto) 16.5 L (20.5-50.1) % Davie % (Auto) 11.3 H (2-8) % Eos % (Auto) 1.4 (1.0-3.0) % Baso % (Auto) 0.4 (0.0-1.0) % PT (9.0-12.0) SEC INR (0.9-1.2) APTT (22.0-34.0) SEC D-Dimer, Quantitative (0-400) ng/mL Sodium 137 (136-145) mmol/L Potassium 4.3 (3.5-5.1) mmol/L Chloride 98 (98-107) mmol/L Carbon Dioxide 25 (21-32) mmol/L Anion Gap 18.3 H (7-13) mEq/L BUN 13 (7-18) mg/dL Creatinine 1.17 (0.70-1.30) mg/dL Est Cr Clr Drug Dosing 75.14 mL/min Estimated GFR (MDRD) > 60 BUN/Creatinine Ratio 11.1 (No establ ref range) Glucose 231 H (70-99) mg/dL POC Glucose (70-99) mg/dL Lactic Acid 2.4 H* (0.4-2.0) mmol/L Calcium 8.7 (8.5-10.1) mg/dL Total Bilirubin 0.7 (0.2-1.0) mg/dL AST 24 (15-37) U/L ALT 34 (16-63) U/L Alkaline Phosphatase 117 H (46-116) U/L Troponin I High Sens 259 H* (<=76) pg/mL Total Protein 7.4 (6.4-8.2) g/dL Albumin 3.4 (3.4-5.0) g/dL Globulin 4.0 Albumin/Globulin Ratio 0.9 Influenza Type A RNA (NEGATIVE) Influenza Type B RNA (NEGATIVE) SARS-CoV-2 RNA ([facility]) (NEGATIVE) 10/28/21 10/28/21 10/28/21 Range/Units 15:55 15:58 17:15 WBC (5.0-10.0) 10^3/uL RBC (4.6-6.2) 10^6/uL Hgb (14.0-18.0) g/dL Hct (40.0-54.0) % MCV (80-100) fL MCH (27.0-34.0) pg MCHC (33.0-35.0) g/dL Plt Count (150-450) 10^3/uL Neut % (Auto) (42.2-75.2) % Lymph % (Auto) (20.5-50.1) % Davie % (Auto) (2-8) % Eos % (Auto) (1.0-3.0) % Baso % (Auto) (0.0-1.0) % PT 10.6 (9.0-12.0) SEC INR 1.1 (0.9-1.2) APTT (22.0-34.0) SEC D-Dimer, Quantitative 1760 H (0-400) ng/mL Sodium (136-145) mmol/L Potassium (3.5-5.1) mmol/L Chloride (98-107) mmol/L Carbon Dioxide (21-32) mmol/L Anion Gap (7-13) mEq/L BUN (7-18) mg/dL Creatinine (0.70-1.30) mg/dL Est Cr Clr Drug Dosing mL/min Estimated GFR (MDRD) BUN/Creatinine Ratio (No establ ref range) Glucose (70-99) mg/dL POC Glucose (70-99) mg/dL Lactic Acid (0.4-2.0) mmol/L Calcium (8.5-10.1) mg/dL Total Bilirubin (0.2-1.0) mg/dL AST (15-37) U/L ALT (16-63) U/L Alkaline Phosphatase (46-116) U/L Troponin I High Sens 241 H* (<=76) pg/mL Total Protein (6.4-8.2) g/dL Albumin (3.4-5.0) g/dL Globulin Albumin/Globulin Ratio Influenza Type A RNA Negative (NEGATIVE) Influenza Type B RNA Negative (NEGATIVE) SARS-CoV-2 RNA ([facility]) Positive H (NEGATIVE) 10/28/21 10/28/21 10/29/21 Range/Units 20:52 22:39 02:00 WBC (5.0-10.0) 10^3/uL RBC (4.6-6.2) 10^6/uL Hgb (14.0-18.0) g/dL Hct (40.0-54.0) % MCV (80-100) fL MCH (27.0-34.0) pg MCHC (33.0-35.0) g/dL Plt Count (150-450) 10^3/uL Neut % (Auto) (42.2-75.2) % Lymph % (Auto) (20.5-50.1) % Davie % (Auto) (2-8) % Eos % (Auto) (1.0-3.0) % Baso % (Auto) (0.0-1.0) % PT (9.0-12.0) SEC INR (0.9-1.2) APTT 34.6 H (22.0-34.0) SEC D-Dimer, Quantitative (0-400) ng/mL Sodium (136-145) mmol/L Potassium (3.5-5.1) mmol/L Chloride (98-107) mmol/L Carbon Dioxide (21-32) mmol/L Anion Gap (7-13) mEq/L BUN (7-18) mg/dL Creatinine (0.70-1.30) mg/dL Est Cr Clr Drug Dosing mL/min Estimated GFR (MDRD) BUN/Creatinine Ratio (No establ ref range) Glucose (70-99) mg/dL POC Glucose 187 H (70-99) mg/dL Lactic Acid 2.5 H* (0.4-2.0) mmol/L Calcium (8.5-10.1) mg/dL Total Bilirubin (0.2-1.0) mg/dL AST (15-37) U/L ALT (16-63) U/L Alkaline Phosphatase (46-116) U/L Troponin I High Sens (<=76) pg/mL Total Protein (6.4-8.2) g/dL Albumin (3.4-5.0) g/dL Globulin Albumin/Globulin Ratio Influenza Type A RNA (NEGATIVE) Influenza Type B RNA (NEGATIVE) SARS-CoV-2 RNA ([facility]) (NEGATIVE) 10/29/21 10/29/21 10/29/21 Range/Units 02:00 08:31 08:37 WBC (5.0-10.0) 10^3/uL RBC (4.6-6.2) 10^6/uL Hgb (14.0-18.0) g/dL Hct (40.0-54.0) % MCV (80-100) fL MCH (27.0-34.0) pg MCHC (33.0-35.0) g/dL Plt Count (150-450) 10^3/uL Neut % (Auto) (42.2-75.2) % Lymph % (Auto) (20.5-50.1) % Davie % (Auto) (2-8) % Eos % (Auto) (1.0-3.0) % Baso % (Auto) (0.0-1.0) % PT (9.0-12.0) SEC INR (0.9-1.2) APTT (22.0-34.0) SEC D-Dimer, Quantitative (0-400) ng/mL Sodium (136-145) mmol/L Potassium (3.5-5.1) mmol/L Chloride (98-107) mmol/L Carbon Dioxide (21-32) mmol/L Anion Gap (7-13) mEq/L BUN (7-18) mg/dL Creatinine (0.70-1.30) mg/dL Est Cr Clr Drug Dosing mL/min Estimated GFR (MDRD) BUN/Creatinine Ratio (No establ ref range) Glucose (70-99) mg/dL POC Glucose 215 H (70-99) mg/dL Lactic Acid (0.4-2.0) mmol/L Calcium (8.5-10.1) mg/dL Total Bilirubin (0.2-1.0) mg/dL AST (15-37) U/L ALT (16-63) U/L Alkaline Phosphatase (46-116) U/L Troponin I High Sens 146 H* 121 H* (<=76) pg/mL Total Protein (6.4-8.2) g/dL Albumin (3.4-5.0) g/dL Globulin Albumin/Globulin Ratio Influenza Type A RNA (NEGATIVE) Influenza Type B RNA (NEGATIVE) SARS-CoV-2 RNA ([facility]) (NEGATIVE) 10/29/21 10/29/21 10/29/21 Range/Units 08:37 08:37 08:37 WBC (5.0-10.0) 10^3/uL RBC (4.6-6.2) 10^6/uL Hgb (14.0-18.0) g/dL Hct (40.0-54.0) % MCV (80-100) fL MCH (27.0-34.0) pg MCHC (33.0-35.0) g/dL Plt Count (150-450) 10^3/uL Neut % (Auto) (42.2-75.2) % Lymph % (Auto) (20.5-50.1) % Davie % (Auto) (2-8) % Eos % (Auto) (1.0-3.0) % Baso % (Auto) (0.0-1.0) % PT (9.0-12.0) SEC INR (0.9-1.2) APTT 71.0 H (22.0-34.0) SEC D-Dimer, Quantitative 1530 H (0-400) ng/mL Sodium 136 (136-145) mmol/L Potassium 4.2 (3.5-5.1) mmol/L Chloride 99 (98-107) mmol/L Carbon Dioxide 26 (21-32) mmol/L Anion Gap 15.2 H (7-13) mEq/L BUN 12 (7-18) mg/dL Creatinine 1.23 (0.70-1.30) mg/dL Est Cr Clr Drug Dosing 71.47 mL/min Estimated GFR (MDRD) 59 BUN/Creatinine Ratio 9.8 (No establ ref range) Glucose 212 H (70-99) mg/dL POC Glucose (70-99) mg/dL Lactic Acid (0.4-2.0) mmol/L Calcium 8.7 (8.5-10.1) mg/dL Total Bilirubin 0.8 (0.2-1.0) mg/dL AST 25 (15-37) U/L ALT 31 (16-63) U/L Alkaline Phosphatase 108 (46-116) U/L Troponin I High Sens (<=76) pg/mL Total Protein 7.0 (6.4-8.2) g/dL Albumin 3.2 L (3.4-5.0) g/dL Globulin 3.8 Albumin/Globulin Ratio 0.84 Influenza Type A RNA (NEGATIVE) Influenza Type B RNA (NEGATIVE) SARS-CoV-2 RNA ([facility]) (NEGATIVE) Med Orders - Current: Current Medications Acetaminophen (Acetaminophen 325 Mg Tab) 650 mg PO Q4H PRN PRN Reason: Pain (mild 1-3 )/fever Al Hydroxide/Mg Hydroxide (Aluminum Hydroxide/Magnesium Hydroxide/Simethicone Susp 30 Ml Cup) 30 ml PO Q4H PRN PRN Reason: Heartburn Last Admin: 10/29/21 04:07 Dose: 30 ml Documented by: Aspirin (Aspirin 81 Mg Tab.Ec) 81 mg PO DAILY [facility] Last Admin: 10/29/21 09:18 Dose: 81 mg Documented by: Atorvastatin Calcium (Atorvastatin 20 Mg Tab) 40 mg PO DAILY [facility] Last Admin: 10/29/21 09:17 Dose: 40 mg Documented by: Benzonatate (Benzonatate 100 Mg Cap) 100 mg PO TID PRN PRN Reason: Cough Last Admin: 10/28/21 22:24 Dose: 100 mg Documented by: Clopidogrel Bisulfate (Clopidogrel 75 Mg Tab) 75 mg PO DAILY [facility] Last Admin: 10/29/21 09:18 Dose: 75 mg Documented by: Dexamethasone (Dexamethasone 4 Mg/Ml Sdv) 6 mg IVPUSH DAILY [facility] Last Admin: 10/29/21 09:14 Dose: 6 mg Documented by: Dextrose/Water (50% Dextrose In Water 50 Ml Syringe) 50 ml IVPUSH Q15M PRN PRN Reason: Hypoglycemia Docusate Sodium (Docusate Sodium 100 Mg Cap) 100 mg PO DAILY PRN PRN Reason: Constipation Glipizide (Glipizide 5 Mg Tab.Er) 10 mg PO BIDMEALS [facility] Last Admin: 10/29/21 09:18 Dose: 10 mg Documented by: Glucagon (Glucagon,Human Recombinant 1 Mg Vial) 1 mg IM Q15M PRN PRN Reason: Hypoglycemia Hydrochlorothiazide (Hydrochlorothiazide 25 Mg Tab) 12.5 mg PO DAILY [facility] Last Admin: 10/29/21 09:18 Dose: 12.5 mg Documented by: Heparin Sodium/Sodium Chloride (Heparin 25,000 Units In 1/2 Ns 500 Ml) 25,000 units in 500 mls @ 37.557 mls/hr IV TITRATE [facility]; Protocol Last Admin: 10/29/21 08:40 Dose: 16 units/kg/hr, 50.076 mls/hr Documented by: Ceftriaxone Sodium 1 gm/ (Sodium Chloride) 50 mls @ 100 mls/hr IV Q24H [facility] Last Admin: 10/28/21 22:27 Dose: 100 mls/hr Documented by: Piperacillin Sod/Tazobactam (Sod 3.375 gm/ Sodium Chloride) 100 mls @ 200 mls/hr IV Q6H [facility] Last Admin: 10/29/21 11:05 Dose: 200 mls/hr Documented by: Insulin Human Lispro (Insulin Lispro 100 Units/Ml 3 Ml Vial) 0 unit SUBCUT TIDMEALS [facility]; Protocol Last Admin: 10/29/21 09:15 Dose: 4 units Documented by: Lisinopril (Lisinopril 10 Mg Tab) 10 mg PO DAILY [facility] Last Admin: 10/29/21 09:21 Dose: 10 mg Documented by: Lorazepam (Lorazepam 1 Mg Tab) 1 mg PO BID PRN PRN Reason: Anxiety Last Admin: 10/28/21 22:24 Dose: 1 mg Documented by: Metoprolol Tartrate (Metoprolol Tartrate 25 Mg Tab) 12.5 mg PO DAILY [facility] Last Admin: 10/29/21 09:22 Dose: 12.5 mg Documented by: Non-Formulary Medication (Tizanidine Hcl [Tizanidine Hcl]) 2 mg PO TID PRN PRN Reason: Pain Oxycodone HCl (Oxycodone 5 Mg Tab) 10 mg PO Q6HR PRN PRN Reason: Pain Last Admin: 10/29/21 04:08 Dose: 10 mg Documented by: Pantoprazole Sodium (Pantoprazole 40 Mg Tab.Cr) 40 mg PO DAILY [facility] Last Admin: 10/29/21 09:21 Dose: 40 mg Documented by: Discontinued Medications Aspirin (Aspirin 81 Mg Tab.Chew) 324 mg PO ONETIME ONE Stop: 10/28/21 16:56 Last Admin: 10/28/21 17:04 Dose: 324 mg Documented by: Guaifenesin/Codeine Phosphate (Codeine/Guaifenesin 10-100 Mg/5 Ml Syrup 5 Ml Cup) 5 ml PO ONETIME ONE Stop: 10/28/21 19:27 Last Admin: 10/28/21 19:31 Dose: 5 ml Documented by: Heparin Sodium (Porcine) (Heparin Sodium 5,000 Units/Ml Vial) 4,000 units IVPUSH .BOLUS ONE Stop: 10/28/21 18:46 Last Admin: 10/28/21 19:16 Dose: 4,000 units Documented by: Heparin Sodium (Porcine) (Heparin Sodium 5,000 Units/Ml Vial) 2,000 units IVPUSH .BOLUS ONE Stop: 10/29/21 03:05 Last Admin: 10/29/21 03:38 Dose: 2,000 units Documented by: - Exam Quality Assessment: Reports: DVT Prophylaxis. Denies: Supplemental Oxygen, Central Line/PICC, Urine Catheter General: Reports: Alert, Oriented, Cooperative, No Acute Distress HEENT: Reports: Pupils Equal, Pupils Reactive, EOMI, Mucous Membr. Moist/[place]ixby Neck: Reports: Supple, No JVD, No Thyromegaly Lungs: Reports: Clear to Auscultation, Normal Respiratory Effort. Denies: Crackles, Wheezing Cardiovascular: Reports: Regular Rate, Regular Rhythm, No Murmurs GI/Abdominal Exam: Normal Bowel Sounds, No Organomegaly. No: Rigid, Rebound (Male) Exam: Deferred Rectal (Males) Exam: Deferred Back Exam: Reports: Normal Inspection Extremities: Normal Inspection, No Pedal Edema Skin: Reports: Warm, Dry, Intact Neurological: Reports: No New Focal Deficit Psy/Mental Status: Reports: Alert, Normal Affect, Normal Mood
[2021-10-29] MEDS: LORazepam 1 MG Tab PO PRN (13:49)
[2021-10-29 16:08] VITALS: BP 144/83; PULSE 82
== END 2021-10-29 16:00 | disposition home or self-care (01) | DRG 179 ==
LOC: DL.ED 14:34 → DL.MS 19:11
PROVIDERS: ADMIT Internal Medicine Nephrology; ATTEND Internal Medicine Nephrology
PROC: 3E0333Z Introduction of Anti-inflammatory into Peripheral Vein, Percutaneous Approach (ICD-10-PCS; principal; 2021-10-28)
PROC: 8E0ZXY6 Isolation (ICD-10-PCS; principal; 2021-10-28)
DX: U07.1 COVID-19 (principal); I10 Essential (primary) hypertension; R07.89 Other chest pain; R77.8 Other specified abnormalities of plasma proteins; G47.33 Obstructive sleep apnea (adult) (pediatric); H54.7 Unspecified visual loss; I25.10 Atherosclerotic heart disease of native coronary artery without angina pectoris; D64.9 Anemia, unspecified; G89.4 Chronic pain syndrome; K21.9 Gastro-esophageal reflux disease without esophagitis; N40.0 Benign prostatic hyperplasia without lower urinary tract symptoms; G47.30 Sleep apnea, unspecified; E11.9 Type 2 diabetes mellitus without complications; E78.5 Hyperlipidemia, unspecified; Z79.82 Long term (current) use of aspirin; Z79.899 Other long term (current) drug therapy; Z97.3 Presence of spectacles and contact lenses; I25.2 Old myocardial infarction; Z95.5 Presence of coronary angioplasty implant and graft; Z87.19 Personal history of other diseases of the digestive system; Z90.89 Acquired absence of other organs; Z98.890 Other specified postprocedural states; F32.A Depression, unspecified; F41.9 Anxiety disorder, unspecified; Z88.8 Allergy status to other drugs, medicaments and biological substances; Z79.84 Long term (current) use of oral hypoglycemic drugs; Z79.02 Long term (current) use of antithrombotics/antiplatelets; Z79.890 Hormone replacement therapy; Z51.81 Encounter for therapeutic drug level monitoring
CPT/HCPCS: 0240U; 36415; 71045; 80053; 82947; 83605; 84484; 85025; 85379; 85610; 85730; 87040; 93005; 93010; 96374; 99285; 99285-25; A9270-GY; J0696; J1100; J1644; J1815-GY; J2543

== ENCOUNTER 2023-03-14 16:59 | Emergency (ER) | payer MEDICARE, OTHER ==
[2023-03-14] MEDS ORDERED: Sodium Chloride 0.9% 10 ML Syringe FLUSH PRN (17:11)
[2023-03-14 17:21] VITALS: BP 131/101; PULSE 84
[2023-03-14 17:34] LABS: BASOPHILS PERCENT AUTO 0.5 % (0.0-1.0); EOSINOPHILS PERCENT AUTO 1.3 % (1.0-3.0); HEMATOCRIT 34.7 % (40.0-54.0); HEMOGLOBIN 10.4 g/dL (14.0-18.0); LYMPHOCYTES PERCENT AUTO 17.4 % (20.5-50.1); MEAN CORPUSCULAR VOLUME 66.9 fL (80-100); MONOCYTES PERCENT AUTO 10.8 % (2-8); PLATELET COUNT,PLT 307 10^3/uL (150-450); RED BLOOD CELL COUNT 5.19 10^6/uL (4.6-6.2); WHITE BLOOD CELL COUNT,WBC 7.5 10^3/uL (5.0-10.0)
[2023-03-14 17:57] LABS: A/G RATIO 1.1; ALBUMIN 3.4 g/dL (3.4-5.0); ANION GAP 13.1 mEq/L (7-13); BILIRUBIN TOTAL 0.6 mg/dL (0.2-1.0); BUN/CREATININE RATIO 12.1 (No establ ref range); C-REACTIVE PROTEIN 0.3 mg/dL (0.0-0.9); CALCIUM 8.6 mg/dL (8.5-10.1); CREATININE 1.16 mg/dL (0.70-1.30); EST CRCL DRUG DOSING (CG) 73.81 mL/min; POTASSIUM,K 4.1 mmol/L (3.5-5.1); PROTEIN TOTAL,TP 6.5 g/dL (6.4-8.2)
== END 2023-03-14 18:30 | disposition home or self-care (01) ==
LOC: DL.ED 16:59
DX: R07.81 Pleurodynia (principal); I25.10 Atherosclerotic heart disease of native coronary artery without angina pectoris; I10 Essential (primary) hypertension; E78.00 Pure hypercholesterolemia, unspecified; I25.2 Old myocardial infarction; K21.9 Gastro-esophageal reflux disease without esophagitis; E11.9 Type 2 diabetes mellitus without complications; E66.9 Obesity, unspecified; Z68.41 Body mass index [BMI] 40.0-44.9, adult; Z86.16 Personal history of COVID-19; Z79.899 Other long term (current) drug therapy; Z79.82 Long term (current) use of aspirin; Z79.84 Long term (current) use of oral hypoglycemic drugs
CPT/HCPCS: 36415; 71045; 80053; 84484; 85025; 86140; 93005; 93010; 99284; J3490

== ENCOUNTER 2023-06-08 21:44 | Emergency (ER) | payer MEDICARE, OTHER | END 2023-06-08 22:30 | disposition left against medical advice (07) | LOC: DL.ED 21:44 | DX: Z53.21 Procedure and treatment not carried out due to patient leaving prior to being seen by health care provider (principal) ==